=== PATIENT | male | born 1965 | race Caucasian/White ===

== ENCOUNTER 2017-04-12 03:29 | Inpatient (IN) | payer MEDICAID ==
[~2017-04-12] VITALS: Ht 177.8 cm; Wt 121.6 kg
[~2017-04-12 03:29] MED LIST: CYMBALTA60 MG PO; GLUCOPHAGE1000 MG PO; HUMULIN R100 U/ML SC; LEVEMIR100 U/M1 SC; LISINOPRIL10 MG PO; LYRICA75 MG PO; NOVOLOG100 U/M1 SC; OMEPRAZOLE20 M1 PO; SYMBICORT 16010.2 GM INH; ULTRAM50 MG PO; VICTOZA0.6 MG/0.1 SQ
[2017-04-12 04:06] LABS: BASOPHILS 0.1 % (0-2); EOSINOPHILS 0.1 % (0-7); HEMATOCRIT 59.7 % (42.0-54.0); HEMOGLOBIN 19.9 g/dL (13.5-17.5); IMMATURE GRANULOCYTES 0.2 % (0-5); MCH 29.8 pg (26.0-34.0); MCHC 33.3 g/dL (31.0-37.0); MCV 89.5 fL (80.0-100.0); MONOCYTES 4.3 % (2-11); NEUTROPHILS 84.3 % (40-80); PLATELET COUNT 184 10x3/uL (130-400); RDW 14.2 % (11.5-14.5); WBC 9.8 10x3/uL (4.8-10.8)
[2017-04-12 04:07] LABS: RBC 6.67 10x6/uL (4.20-6.10)
[2017-04-12 04:12] LABS: APPEARANCE CLEAR (CLEAR); BILIRUBIN NEGATIVE (NEGATIVE); COLOR DK YELLOW (YELLOW); GLUCOSE 100 mg/dL (NEGATIVE); KETONE NEGATIVE (NEGATIVE); LEUKOCYTE ESTERASE 1+ (NEGATIVE); NITRITE NEGATIVE (NEGATIVE); PROTEIN 3+ mg/dL (NEGATIVE); SPECIFIC GRAVITY 1.015 (1.005-1.020); UROBILINOGEN NORMAL (NORMAL)
[2017-04-12 04:13] LABS: BACTERIA FEW /hpf (NONE SEEN); EPITHELIAL CELLS 0-5 /hpf (0-5); HYALINE CAST 0-5 /lpf (NONE SEEN); MUCUS <1+ /lpf (NONE SEEN); RED CELLS - URINE 0-5 /hpf (0-5); WHITE CELLS - URINE 0-5 /hpf (0-5)
[2017-04-12 04:29] LABS: ALBUMIN 3.5 g/dL (3.4-5.0); ANION GAP 11.5 mmol/L (8-16); BILIRUBIN - TOTAL 0.83 mg/dL (0.2-1.3); CALCIUM 8.9 mg/dL (8.5-10.1); CARBON DIOXIDE 35.3 mmol/L (21.0-32.0); CREATININE - SERUM 1.1 mg/dL (0.6-1.3); POTASSIUM - SERUM 3.8 mmol/L (3.5-5.1); PROTEIN - SERUM 7.9 g/dL (6.4-8.2)
--- NOTE | 2017-04-12 07:30 | NUR ---
PT REC'D TO ROOM FROM ER VIA WC. ESCORTED BY ADMISSION STAFF. AAOX4. NO COMPLAINTS OF PAIN. REGULAR HEART RATE AND RHYTHM. LUNG SOUND CLEAR AND EQUAL BILAT. ABD ROUND, BOWEL SOUNDS HYPERACTIVE X4 QUADS, SLIGHT PAIN ON PALPATION TO RLQ AND RUQ. PT STATES IT "COMES AND GOES." PIV TO R HAND FREE OF REDNESS AND SWELLING. PATENT WITH DRESSING CDI. +3 PITTING EDEMA TO BLE. WILL APPLY SCD'S. HEALTH HX OBTAINED. BED LOW, CALL LIGHT IN REACH, DENIES NEEDS. CPOC.
[2017-04-12 08:02] VITALS: Ht 177.8 cm; Wt 121.6 kg
[2017-04-12 08:38] VITALS: BP 151/73
--- NOTE | 2017-04-12 09:30 | NUR ---
MORNING MEDS PASSED AT THIS TIME. NICOTINE PATCH APPLIED TO L SHOULDER. BED LOW, CALL LIGHT IN REACH, DENIES NEEDS. CPOC.
--- NOTE | 2017-04-12 12:05 | NUR ---
CURRENT FSBS 196. 4 UNITS OF INSULIN ADMINISTERED PER SS. BED LOW, CALL LIGHT IN REACH, DENIES NEEDS. CPOC.
[2017-04-12 13:30] VITALS: BP 137/84
--- NOTE | 2017-04-12 13:30 | NUR ---
PRN DEMEROL ADMINISTERED PER PT COMPLAINTS OF 8/10 ABD PAIN. WILL REASSESS. FAMILY AT BEDSIDE. BED LOW, CALL LIGHT IN REACH, DENIES NEEDS. CPOC.
--- NOTE | 2017-04-12 15:02 | NUR ---
PT RESTING IN BED WITH FAMILY AT BEDSIDE. BED LOW, CALL LIGHT IN REACH, DENIES NEEDS. CPOC.
[2017-04-12 17:05] VITALS: BP 178/115
--- NOTE | 2017-04-12 19:20 | NUR ---
RECIEVED SHIFT REPORT. PT IS LYING IN BED. ALERT AND ORIENTED AND ABLE TO VERBALIZE NEEDS. IV IS PATENT AND FLUIDS ARE RUNNING PER ORDER. O2 @ 4 PER NASAL CANNULA. SCD'S ON. PT STATES PAIN IS 5/10. PT IS AMBULATORY BUT WAS INSTRUCTED TO CALL FOR ANY ASSISTANCE NEEDED. NO NEEDS ARE VERBALIZED AT THIS TIME. IS AT THE BEDSIDE. WILL CONTINUE TO MONITOR. SIDE RAILS ARE UP X 2. BED IS IN LOWEST POSITION. CALL LIGHT IS WITHIN REACH.
[2017-04-12 20:00] VITALS: BP 158/101
--- NOTE | 2017-04-12 20:41 | NUR ---
SHIFT ASSESSMENT COMPLETED. NIGHT MEDS GIVEN WITH NO PROBLEMS. PT RECIEVED 8 UNITS INSULIN PER SLIDING SCALE FOR ZZCI=935. NO NEEDS ARE VOICED. WILL MONITOR. AT BEDSIDE. SIDE RAILS X 2. BED LOW. CALL LIGHT IN REACH.
[2017-04-13] VITALS: BP 161/103
[2017-04-13 04:00] VITALS: BP 172/117
[2017-04-13 05:59] LABS: BASOPHILS 0.1 % (0-2); EOSINOPHILS 0.7 % (0-7); HEMATOCRIT 53.1 % (42.0-54.0); HEMOGLOBIN 17.4 g/dL (13.5-17.5); IMMATURE GRANULOCYTES 0.1 % (0-5); LYMPHOCYTES 21.3 % (15-50); MCH 29.8 pg (26.0-34.0); MCHC 32.8 g/dL (31.0-37.0); MCV 91.1 fL (80.0-100.0); MEAN PLATELET VOLUME 10.4 fL (7.4-10.4); NEUTROPHILS 69.8 % (40-80); PLATELET COUNT 160 10x3/uL (130-400); RBC 5.83 10x6/uL (4.20-6.10); RDW 14.7 % (11.5-14.5); WBC 6.8 10x3/uL (4.8-10.8)
[2017-04-13 06:38] LABS: ALBUMIN 2.7 g/dL (3.4-5.0); ALKALINE PHOSPHATASE 83 U/L (46-116); ALT (SGPT) 35 U/L (10-68); CALCIUM 8.6 mg/dL (8.5-10.1); CARBON DIOXIDE 36.8 mmol/L (21.0-32.0); CHLORIDE - SERUM 100 mmol/L (98-107); CREATININE - SERUM 0.9 mg/dL (0.6-1.3); PROTEIN - SERUM 6.5 g/dL (6.4-8.2); SODIUM 140 mmol/L (136-145); eGFR NON AFRICAN AMERICAN > 90 mL/min (90-120)
[2017-04-13 06:39] LABS: CALC OSMOLALITY 277 mosm/kg (275-300); GLUCOSE 120 mg/dL (74-106); POTASSIUM - SERUM 3.2 mmol/L (3.5-5.1); UREA NITROGEN 8 mg/dL (7-18)
[2017-04-13 09:23] VITALS: BP 175/116
--- NOTE | 2017-04-13 12:30 | NUR ---
PATIENT UP AMBULATING IN ROOM WITHOUT ASSIST. NO SIGNS OF DISTRESS NOTED.
[2017-04-13 12:59] VITALS: BP 166/115
[2017-04-13 16:58] VITALS: BP 108/78
--- NOTE | 2017-04-13 19:55 | NUR ---
RECIEVED SHIFT REPORT. PT IS LYING IN BED. ALERT AND ORIENTED AND ABLE TO VERBALIZE NEEDS. IV IS PATENT AND FLUIDS ARE RUNNING PER ORDER. O2 @ 4 PER NASAL CANNULA. SCD'S OFF AT THIS TIME. PT IS AMBULATORY BUT WAS INSTRUCTED TO CALL FOR ANY ASSISTANCE NEEDED. PT STATES PAIN IS 4/10. NO NEEDS ARE VERBALIZED AT THIS TIME. IS AT BEDSIDE. WILL CONTINUE TO MONITOR. SIDE RAILS ARE UP X 2. BED IS IN LOWEST POSITION. CALL LIGHT IS WITHIN REACH.
[2017-04-13 20:00] VITALS: BP 159/96
--- NOTE | 2017-04-13 21:18 | NUR ---
SHIFT ASSESSMENT COMPLETED. PT REFUSED SCHEDULED MIRALAX AND COLACE DUE TO FREQUENT SOFT STOOLS. PT RECIEVED 8 UNITS INSULIN PER SLIDING SCALE FOR QQCV=778. NO NEEDS VOICED AT THIS TIME. AT BEDSIDE. WILL MONITOR. SIDE RAILS X 2. BED LOW. CALL LIGHT IN REACH.
[2017-04-14] VITALS: BP 144/92
[2017-04-14 05:34] LABS: BASOPHILS 0.2 % (0-2); EOSINOPHILS 0.8 % (0-7); HEMATOCRIT 54.6 % (42.0-54.0); HEMOGLOBIN 17.6 g/dL (13.5-17.5); IMMATURE GRANULOCYTES 0.2 % (0-5); LYMPHOCYTES 17.3 % (15-50); MCH 29.6 pg (26.0-34.0); MCHC 32.2 g/dL (31.0-37.0); MCV 91.9 fL (80.0-100.0); MONOCYTES 9.1 % (2-11); NEUTROPHILS 72.4 % (40-80); PLATELET COUNT 172 10x3/uL (130-400); RBC 5.94 10x6/uL (4.20-6.10); RDW 14.9 % (11.5-14.5); WBC 6.6 10x3/uL (4.8-10.8)
[2017-04-14 06:27] LABS: ALBUMIN 2.8 g/dL (3.4-5.0); ALKALINE PHOSPHATASE 98 U/L (46-116); ALT (SGPT) 34 U/L (10-68); BILIRUBIN - TOTAL 0.67 mg/dL (0.2-1.3); CALCIUM 8.7 mg/dL (8.5-10.1); CHLORIDE - SERUM 101 mmol/L (98-107); CREATININE - SERUM 0.9 mg/dL (0.6-1.3); PROTEIN - SERUM 6.8 g/dL (6.4-8.2); SODIUM 139 mmol/L (136-145); eGFR NON AFRICAN AMERICAN > 90 mL/min (90-120)
[2017-04-14 06:47] LABS: CALC OSMOLALITY 281 mosm/kg (275-300); GLUCOSE 181 mg/dL (74-106); POTASSIUM - SERUM 4.1 mmol/L (3.5-5.1); UREA NITROGEN 11 mg/dL (7-18)
[2017-04-14 09:52] VITALS: BP 153/87
[2017-04-14] MEDS ORDERED: FLORAJEN3 CAPS460 MG PO (10:32)
[2017-04-14] MEDS ORDERED: COLACE100 MG PO (10:32)
[2017-04-14] MEDS ORDERED: Levaquin PO (10:33)
[2017-04-14] MEDS ORDERED: MIRALAX17 GM PO (10:33)
[2017-04-14] MEDS ORDERED: FLAGYL500 MG PO (10:34)
--- NOTE | 2017-04-14 11:16 | NUR ---
CM met with patient and to assess discharge planning needs. Patient lives with his , Garima, who will take him home. Patient has O2 at night where [facility] gets from [facility]. Patient denies any HH needs or use at this time. He has 4 steps to enter his home. CM will continue to follow and assist as needed. PCP: [facility] Garima Arreola () [phone]
--- NOTE | 2017-04-14 16:31 | NUR ---
PT DISCHARGED HOME AND DOES NOT HAVE ANY NEEDS FROM A CM STANDPOINT
== END 2017-04-14 12:26 | disposition home or self-care (01) | DRG 392 ==
LOC: D.ER 03:29 → D.MS 06:27
PROVIDERS: Emergency Medicine; Family Medicine; ADMIT Family Medicine
DX: K57.92 Diverticulitis of intestine, part unspecified, without perforation or abscess without bleeding (principal); F17.203 Nicotine dependence unspecified, with withdrawal; K59.00 Constipation, unspecified; J44.9 Chronic obstructive pulmonary disease, unspecified; E11.65 Type 2 diabetes mellitus with hyperglycemia; E11.40 Type 2 diabetes mellitus with diabetic neuropathy, unspecified; Z79.4 Long term (current) use of insulin; K21.9 Gastro-esophageal reflux disease without esophagitis; K76.0 Fatty (change of) liver, not elsewhere classified; Z99.81 Dependence on supplemental oxygen; I10 Essential (primary) hypertension; Z72.89 Other problems related to lifestyle

== ENCOUNTER 2017-07-12 09:03 | Emergency (ER) | payer MEDICARE ==
[~2017-07-12 09:03] MED LIST changes: +COLACE100 MG PO; +FLAGYL500 MG PO; +FLORAJEN3 CAPS460 MG PO; +Levaquin PO; +MIRALAX17 GM PO
[2017-07-12 09:32] LABS: BASOPHILS 0.1 % (0-2); EOSINOPHILS 0.2 % (0-7); HEMATOCRIT 55.6 % (42.0-54.0); HEMOGLOBIN 18.3 g/dL (13.5-17.5); IMMATURE GRANULOCYTES 0.3 % (0-5); LYMPHOCYTES 12.5 % (15-50); MCH 30.3 pg (26.0-34.0); MCHC 32.9 g/dL (31.0-37.0); MCV 92.2 fL (80.0-100.0); MEAN PLATELET VOLUME 10.3 fL (7.4-10.4); MONOCYTES 4.6 % (2-11); NEUTROPHILS 82.3 % (40-80); PLATELET COUNT 179 10x3/uL (130-400); RBC 6.03 10x6/uL (4.20-6.10); RDW 14.1 % (11.5-14.5); WBC 10.8 10x3/uL (4.8-10.8)
[2017-07-12 09:51] LABS: ALBUMIN 3.4 g/dL (3.4-5.0); ALKALINE PHOSPHATASE 105 U/L (46-116); ALT (SGPT) 20 U/L (10-68); AMYLASE - SERUM 21 U/L (25-115); BILIRUBIN - TOTAL 0.94 mg/dL (0.2-1.3); CALC OSMOLALITY 272 mosm/kg (275-300); CARBON DIOXIDE 30.9 mmol/L (21.0-32.0); CHLORIDE - SERUM 93 mmol/L (98-107); GLUCOSE 211 mg/dL (74-106); LIPASE 106 U/L (73-393); POTASSIUM - SERUM 4.5 mmol/L (3.5-5.1); PROTEIN - SERUM 7.5 g/dL (6.4-8.2); SODIUM 133 mmol/L (136-145); UREA NITROGEN 15 mg/dL (7-18); eGFR NON AFRICAN AMERICAN 83 mL/min (90-120)
[2017-07-13] MEDS ORDERED: PRAVASTATIN SOD10 MG PO (15:57)
[2017-07-13] MEDS ORDERED: PROZAC20 MG PO (15:58)
== END 2017-07-12 11:47 | disposition home or self-care (01) ==
LOC: D.ER 09:03
PROVIDERS: Family Medicine
DX: R10.9 Unspecified abdominal pain (principal); R11.10 Vomiting, unspecified

== ENCOUNTER 2017-07-13 10:20 | Observation (INO) | payer MEDICARE ==
[~2017-07-13] VITALS: Ht 177.8 cm; Wt 125.4 kg
[2017-07-13 11:12] LABS: BASOPHILS 0.1 % (0-2); EOSINOPHILS 0.2 % (0-7); HEMATOCRIT 55.8 % (42.0-54.0); HEMOGLOBIN 18.1 g/dL (13.5-17.5); IMMATURE GRANULOCYTES 0.3 % (0-5); LYMPHOCYTES 10.9 % (15-50); MCH 30.1 pg (26.0-34.0); MCHC 32.4 g/dL (31.0-37.0); MCV 92.8 fL (80.0-100.0); MEAN PLATELET VOLUME 10.8 fL (7.4-10.4); MONOCYTES 4.7 % (2-11); NEUTROPHILS 83.8 % (40-80); PLATELET COUNT 165 10x3/uL (130-400); RBC 6.01 10x6/uL (4.20-6.10); RDW 14.1 % (11.5-14.5)
[2017-07-13 11:34] LABS: ALBUMIN 3.5 g/dL (3.4-5.0); ALKALINE PHOSPHATASE 99 U/L (46-116); BILIRUBIN - TOTAL 0.84 mg/dL (0.2-1.3); CALCIUM 9.1 mg/dL (8.5-10.1); CARBON DIOXIDE 32.2 mmol/L (21.0-32.0); CHLORIDE - SERUM 94 mmol/L (98-107); GLUCOSE 172 mg/dL (74-106); LIPASE 88 U/L (73-393); POTASSIUM - SERUM 4.2 mmol/L (3.5-5.1); SODIUM 133 mmol/L (136-145); eGFR NON AFRICAN AMERICAN 83 mL/min (90-120)
[2017-07-13 11:35] LABS: ALT (SGPT) 6 U/L (10-68); AMYLASE - SERUM 35 U/L (25-115); CALC OSMOLALITY 271 mosm/kg (275-300); UREA NITROGEN 19 mg/dL (7-18)
[2017-07-13 11:42] LABS: APPEARANCE CLEAR (CLEAR); BILIRUBIN NEGATIVE (NEGATIVE); COLOR YELLOW (YELLOW); GLUCOSE 50 mg/dL (NEGATIVE); KETONE SMALL mg/dL (NEGATIVE); NITRITE NEGATIVE (NEGATIVE); PROTEIN 3+ mg/dL (NEGATIVE); SPECIFIC GRAVITY 1.015 (1.005-1.020); UROBILINOGEN NORMAL (NORMAL)
[2017-07-13 11:43] LABS: BACTERIA FEW /hpf (NONE SEEN); EPITHELIAL CELLS RARE /hpf (0-5); MUCUS <1+ /lpf (NONE SEEN)
--- NOTE | 2017-07-13 15:23 | NUR ---
RECEIVED REPORT FROM ED. PATIENT TO UNIT SOON.
--- NOTE | 2017-07-13 15:45 | NUR ---
PATIENT ARRIVED TO ROOM 2130 AT THIS TIME. AMBULATORY. PATIENT RESTING IN BED. RESP EVEN AND UNLABORED. O2 VIA NC. CHRONIC O2 USER, HAS HOME UNIT. CALL LIGHT WITHIN REACH. 20 GAUGE IV TO RIGHT AC SALINE LOCKED.
[2017-07-13] MEDS ORDERED: PRAVASTATIN SOD10 MG PO (15:57)
[2017-07-13] MEDS ORDERED: PROZAC20 MG PO (15:58)
--- NOTE | 2017-07-13 16:37 | NUR ---
FSBS 103. NO INSULIN COVERAGE PER SLIDING SCALE. NO DISTRESS. RESTING IN BED WITH EYES OPEN. CALL LIGHT WITHIN REACH.
[2017-07-13 17:10] VITALS: BP 158/96
[2017-07-13 17:51] VITALS: BP 158/96; BMI 38.8
--- NOTE | 2017-07-13 18:01 | NUR ---
MEDICATED FOR PAIN AT THIS TIME. NO DISTRESS.
--- NOTE | 2017-07-13 19:05 | NUR ---
REPORT GIVEN TO ONCOMING NURSE. NO DISTRESS.
--- NOTE | 2017-07-13 19:40 | NUR ---
PT IN BED RESTING QUIETLY. DENIES ANY PAIN OR NEEDS AT THIS TIME. WILL CTM.
[2017-07-13 20:33] VITALS: BP 169/77
--- NOTE | 2017-07-13 23:57 | NUR ---
PT C/O PAIN IN STOMACH. GIVEN PRN NORCO. BREATHING EVEN AND UNLABORED. DENIES ANY OTHER NEEDS AT THIS TIME. PT UNDERSTANDS THAT AFTER MIDNIGHT HE WILL BE NPO FOR UPCOMING ULTRASOUND. WILL CTM.
[2017-07-14 04:39] VITALS: BP 170/103
[2017-07-14 05:55] LABS: BASOPHILS 0.1 % (0-2); EOSINOPHILS 1.3 % (0-7); HEMATOCRIT 49.1 % (42.0-54.0); HEMOGLOBIN 15.5 g/dL (13.5-17.5); IMMATURE GRANULOCYTES 0.1 % (0-5); LYMPHOCYTES 24.3 % (15-50); MCH 29.5 pg (26.0-34.0); MCHC 31.6 g/dL (31.0-37.0); MCV 93.3 fL (80.0-100.0); MEAN PLATELET VOLUME 10.4 fL (7.4-10.4); MONOCYTES 7.4 % (2-11); NEUTROPHILS 66.8 % (40-80); PLATELET COUNT 145 10x3/uL (130-400); RBC 5.26 10x6/uL (4.20-6.10); RDW 14.3 % (11.5-14.5); WBC 7.2 10x3/uL (4.8-10.8)
--- NOTE | 2017-07-14 06:08 | NUR ---
FSBS WAS 253. DID NOT GIVE INSULIN DUE TO PT BEING NPO SINCE MIDNIGHT.
[2017-07-14 08:08] LABS: ALKALINE PHOSPHATASE 86 U/L (46-116); CALCIUM 8.2 mg/dL (8.5-10.1); CARBON DIOXIDE 30.3 mmol/L (21.0-32.0); CHLORIDE - SERUM 102 mmol/L (98-107); CREATININE - SERUM 0.9 mg/dL (0.6-1.3); LIPASE 90 U/L (73-393); POTASSIUM - SERUM 4.2 mmol/L (3.5-5.1); SODIUM 140 mmol/L (136-145); UREA NITROGEN 16 mg/dL (7-18); eGFR NON AFRICAN AMERICAN > 90 mL/min (90-120)
[2017-07-14 08:14] LABS: ALBUMIN 2.6 g/dL (3.4-5.0); ALT (SGPT) 20 U/L (10-68); AMYLASE - SERUM 14 U/L (25-115); CALC OSMOLALITY 288 mosm/kg (275-300); GLUCOSE 259 mg/dL (74-106); PROTEIN - SERUM 5.5 g/dL (6.4-8.2)
[2017-07-14 08:24] VITALS: BP 152/113
[2017-07-14 11:55] VITALS: BP 141/81
[2017-07-14 13:25] VITALS: Ht 177.8 cm; Wt 125.4 kg
[2017-07-14 15:27] VITALS: BP 130/72
[2017-07-14 20:00] VITALS: BP 146/93
--- NOTE | 2017-07-14 20:10 | NUR ---
RESUMED CARE OF PT, LYING IN BED RESPIRAITONS EVEN AND UNLABORED ON ROOM AIR. FAMILY AT BEDSIDE. RIGHT AC INFUSING NS @ 100. PLAN OF CARE DISCUSSED. CALL LIGHT IN REACH. WILL CONTINUE TO MONITOR. SEE NURSE ASSESSMENT.
[2017-07-15] VITALS: BP 175/112
[2017-07-15 04:00] VITALS: BP 163/95
--- NOTE | 2017-07-15 05:32 | NUR ---
FOOD SERVICE ORDER CLERK AT BEDSIDE TO OBTAIN VITALS, WILL CONTINUE WITH PLAN OF CARE. CALL LIGHT IN REACH.
[2017-07-15 05:34] LABS: BASOPHILS 0.2 % (0-2); EOSINOPHILS 1.4 % (0-7); HEMATOCRIT 49.4 % (42.0-54.0); HEMOGLOBIN 15.7 g/dL (13.5-17.5); IMMATURE GRANULOCYTES 0.2 % (0-5); LYMPHOCYTES 18.8 % (15-50); MCH 30.1 pg (26.0-34.0); MCHC 31.8 g/dL (31.0-37.0); MCV 94.6 fL (80.0-100.0); MEAN PLATELET VOLUME 10.7 fL (7.4-10.4); NEUTROPHILS 73.4 % (40-80); PLATELET COUNT 153 10x3/uL (130-400); RBC 5.22 10x6/uL (4.20-6.10); RDW 14.4 % (11.5-14.5)
[2017-07-15 05:36] LABS: WBC 9.4 10x3/uL (4.8-10.8)
[2017-07-15 06:01] LABS: ALBUMIN 2.9 g/dL (3.4-5.0); ALKALINE PHOSPHATASE 111 U/L (46-116); ALT (SGPT) 19 U/L (10-68); BILIRUBIN - TOTAL 0.69 mg/dL (0.2-1.3); CALC OSMOLALITY 281 mosm/kg (275-300); CALCIUM 8.4 mg/dL (8.5-10.1); CARBON DIOXIDE 34.1 mmol/L (21.0-32.0); CHLORIDE - SERUM 99 mmol/L (98-107); CREATININE - SERUM 0.9 mg/dL (0.6-1.3); POTASSIUM - SERUM 3.7 mmol/L (3.5-5.1); PROTEIN - SERUM 6.7 g/dL (6.4-8.2); SODIUM 138 mmol/L (136-145); UREA NITROGEN 13 mg/dL (7-18); eGFR NON AFRICAN AMERICAN > 90 mL/min (90-120)
[2017-07-15 06:02] LABS: GLUCOSE 201 mg/dL (74-106)
[2017-07-15 08:54] VITALS: BP 163/116
--- NOTE | 2017-07-15 09:30 | NUR ---
ALERT AND ORIENTED X4. AT BEDSIDE. BP-208/119. RECHECK BP MANUALLY-189/85. NOTIFY LATOYA. ORDER FOR APRESOLINE 10mg IV FOR SYSTOLIC OVER 170 OBTAINED AND GIVEN PER ORDER. CONTINUE TO MONITOR. BENADRYL GIVEN FOR ITCHING. COMPLAINS OF NAUSEA. ZOFRAN GIVEN PER ORDER. DENIES ANY OTHER NEEDS. BED LOCKED AND LOW. CALL LIGHT IN REACH. TWO SIDERAILS UP.
[2017-07-15 12:55] VITALS: BP 152/98
[2017-07-15 16:01] VITALS: BP 137/82
[2017-07-15 21:58] VITALS: BP 161/97
--- NOTE | 2017-07-16 02:07 | NUR ---
CALL LIGHT IN REACH, WILL CONTINUE WITH PLAN OF CARE.
[2017-07-16 02:20] VITALS: BP 157/110
[2017-07-16 05:18] VITALS: BP 166/116
[2017-07-16 07:00] LABS: BASOPHILS 0.2 % (0-2); HEMATOCRIT 51.4 % (42.0-54.0); HEMOGLOBIN 16.3 g/dL (13.5-17.5); IMMATURE GRANULOCYTES 0.3 % (0-5); LYMPHOCYTES 15.7 % (15-50); MCH 29.6 pg (26.0-34.0); MCHC 31.7 g/dL (31.0-37.0); MCV 93.3 fL (80.0-100.0); MEAN PLATELET VOLUME 11.1 fL (7.4-10.4); MONOCYTES 5.9 % (2-11); NEUTROPHILS 76.9 % (40-80); RBC 5.51 10x6/uL (4.20-6.10); RDW 14.4 % (11.5-14.5)
[2017-07-16 07:01] LABS: PLATELET COUNT 100 10x3/uL (130-400)
[2017-07-16 07:19] LABS: ALBUMIN 2.9 g/dL (3.4-5.0); ALKALINE PHOSPHATASE 94 U/L (46-116); ALT (SGPT) 16 U/L (10-68); CALC OSMOLALITY 278 mosm/kg (275-300); CALCIUM 8.5 mg/dL (8.5-10.1); CARBON DIOXIDE 34.7 mmol/L (21.0-32.0); CHLORIDE - SERUM 97 mmol/L (98-107); CREATININE - SERUM 0.8 mg/dL (0.6-1.3); GLUCOSE 223 mg/dL (74-106); POTASSIUM - SERUM 3.9 mmol/L (3.5-5.1); PROTEIN - SERUM 6.7 g/dL (6.4-8.2); SODIUM 136 mmol/L (136-145); UREA NITROGEN 12 mg/dL (7-18); eGFR NON AFRICAN AMERICAN > 90 mL/min (90-120)
[2017-07-16 08:38] VITALS: BP 174/118
--- NOTE | 2017-07-16 08:44 | NUR ---
RESP UL ON . IV PATENT. AT BS. CONT. TO C/O PAIN. WILL CONT. TO MONITOR.
[2017-07-16 12:00] VITALS: BP 159/108
--- NOTE | 2017-07-16 14:24 | NUR ---
Nutrition Follow Up: Per chart pt continues with abdominal pain. Pt is eating 38% meal avg on a diabetic diet. +BM 07/16/17. Wt gain noted. Labs reviewed - Glucose elevated. Meds noted. Rec continue current diet as tolerated. RD following.
[2017-07-16 16:40] VITALS: BP 159/116
--- NOTE | 2017-07-16 19:15 | NUR ---
PT IS RESTING IN BED WITH EYES OPEN. ALERT AND ORIENTED X 3. VOICED COMLAINT OF ABD PAIN LEVEL OF 5 AT THIS TIME. AWAITING SURGERY TO COME GET HIM. IV INFUSING TO RIGHT AC WITHOUT DIFFICULTY. NO REDNESS OR EDEMA NOTED AT THE INSERTION SITE. IS AT BEDSIDE. SR'S ARE UP X 2 IN BED. CALL LIGHT AND BEDSIDE TABLE ARE WITHIN EASY REACH.
[2017-07-16 22:40] VITALS: BP 185/120
--- NOTE | 2017-07-16 22:50 | NUR ---
PT TOLD OSVALDO MCNALLY RN HIS PAIN MEDS WERE NOT WORKING. HE WANTS NORCO 10 [address] ACEVEDO PAGED PER OSVALDO.
--- NOTE | 2017-07-16 23:06 | NUR ---
PT RESTING IN HIS ROOM EATING A BOWL OF CEREAL AFTER FINDING OUT HIS SURGERY WAS NOT UNTIL AM. NO OTHER NEEDS VOICED.
--- NOTE | 2017-07-16 23:55 | NUR ---
PT IN BED RESTING QUIETLY. DENIES ANY NEEDS AT THIS TIME. BREATHING EVEN AND UNLABORED. WILL CPOC.
--- NOTE | 2017-07-17 03:04 | NUR ---
RESTING IN BED WITH EYES CLOSED.
--- NOTE | 2017-07-17 06:14 | NUR ---
PT RESTING IN BED WITH EYES OPEN. NO ACUTE DISTRESS NOTED. VOICED COMPLAINT OF ABD PAIN LEVEL OF 7. MEDICATED PER OCT.
[2017-07-17 06:37] VITALS: BP 168/104
[2017-07-17 06:49] LABS: BASOPHILS 0.3 % (0-2); EOSINOPHILS 1.6 % (0-7); HEMATOCRIT 50.2 % (42.0-54.0); IMMATURE GRANULOCYTES 0.3 % (0-5); LYMPHOCYTES 15.2 % (15-50); MCH 30.2 pg (26.0-34.0); MCHC 31.9 g/dL (31.0-37.0); MCV 94.7 fL (80.0-100.0); MEAN PLATELET VOLUME 11.2 fL (7.4-10.4); MONOCYTES 7.6 % (2-11); RDW 14.5 % (11.5-14.5); WBC 7.9 10x3/uL (4.8-10.8)
[2017-07-17 06:54] LABS: PLATELET COUNT 159 10x3/uL (130-400)
[2017-07-17 07:16] LABS: ALBUMIN 2.7 g/dL (3.4-5.0); ALKALINE PHOSPHATASE 104 U/L (46-116); ALT (SGPT) 18 U/L (10-68); BILIRUBIN - TOTAL 0.79 mg/dL (0.2-1.3); CALC OSMOLALITY 287 mosm/kg (275-300); CALCIUM 8.6 mg/dL (8.5-10.1); CARBON DIOXIDE 31.7 mmol/L (21.0-32.0); CHLORIDE - SERUM 97 mmol/L (98-107); CREATININE - SERUM 0.9 mg/dL (0.6-1.3); POTASSIUM - SERUM 3.8 mmol/L (3.5-5.1); PROTEIN - SERUM 6.8 g/dL (6.4-8.2); SODIUM 137 mmol/L (136-145); UREA NITROGEN 14 mg/dL (7-18); eGFR NON AFRICAN AMERICAN > 90 mL/min (90-120)
[2017-07-17 07:17] LABS: GLUCOSE 332 mg/dL (74-106)
--- NOTE | 2017-07-17 07:31 | NUR ---
AM ROUNDING- RECEIVED REPORT FROM [place] ATTENDANT NURSE RALPH. PT IS CURRENTLY SITTING UP IN BED WITH EYES OPEN RESTING TALKING TO . PT IS CURRENTLY UPSET WITH FOR GOING OUTSIDE TO SMOKE. PT IS REQUESTING BENADRYL FOR PAIN MEDICATION (DILAUDID) MAKING HIM "ITCH". PER RALPH, DR. ACEVEDO PAGED THREE TIMES LAST NIGHT TO SEE ABOUT GETTING NORCO PT REQUESTED WITH NO CALLBACK. PT IS NPO AT THIS TIME FOR SURGERY TODAY (GALLBLADDER REMOVAL). CONSENTS ARE SIGNED AND IN CHART. ON ROOM AIR. NO MONITOR. IV SEEN TO RIGHT AC WITH NS RUNNING AT 100CC. WILL TX PT WITH BENADRYL ORDERED. WILL CONTINUE TO MONITOR AND CONTINUE WITH PLAN OF CARE.
[2017-07-17 08:00] VITALS: BP 150/95
--- NOTE | 2017-07-17 08:14 | NUR ---
RHODA WITH OR CALLED TO STATED TO THIS NURSE TO PRE-OP PT. THIS NURSE INFORMED RHODA IN OR THAT PT HAS NO PRE-OP MEDICATIONS IN EMAR TO GIVE. RHODA STATES THATS OK THEY WILL GIVE MEDICATIONS LONG PT HAS WORKING IV AND IS IN GOWN. PT HAS WORKING IV AND IS IN GOWN. WILL AWAIT OR TO COME GET PT.
[2017-07-17] MEDS ORDERED: HYDROCODON-ACE1 EAC7 PO (10:19)
--- NOTE | 2017-07-17 10:58 | NUR ---
RECEIVED REPORT FROM ANDRES IN OR. ANDRES STATES THEY WILL BE BRINGING PT BACK SOON. ANDRES ASKED TO SEE ABOUT GETTING PTS PAIN MEDICATION SWITCHED FROM DILAUDID (PT HAS ITCHING REACTION) TO NORCO. ANDRES STATES HE WILL ASK DR. ACEVEDO WHEN HE SEES HIM. ANDRES STATES PT CAN RESUME EATING/DRINKING. WILL AWAIT PT RETURN.
[2017-07-17 11:11] VITALS: BP 166/110
--- NOTE | 2017-07-17 11:57 | NUR ---
PT BACK FROM OR. STERI-STRIPS SEEN TO ABDOMINAL AREA (ONE ON MID-TOP OF ABDOMEN, ONE TO RIGHT OF UPPER ABDOMEN, AND ONE LOWER ABDOMEN). PT IS ON 02 AT 4L VIA NC. ALERT AND ORIENTED. VITAL SIGNS BEING TAKEN. WILL CONTINUE TO MONITOR.
[2017-07-17 12:00] VITALS: BP 166/110
[2017-07-17 16:00] VITALS: BP 172/110
--- NOTE | 2017-07-17 16:14 | NUR ---
RECEIVED ORDERS FROM LATOYA KENT NP TO GIVE PT ONE TIME DOSE NOW OF NORCO 5MG.
--- NOTE | 2017-07-17 18:00 | NUR ---
PT IS CURRENTLY SITTING UP IN BED WITH EYES OPEN RESTING. IS AT BEDSIDE. PT IS AWAITING D/C. NO NEED AT THIS TIME. WILL CONTINUE TO MONITOR.
--- NOTE | 2017-07-17 20:02 | NUR ---
DISCHARGE PAPERWORK COMPLETED. RIGHT AC IV REMOVED WITH TIP INTACT. WHEELED OUTSIDE TO CAR.
== END 2017-07-17 20:03 | disposition home or self-care (01) ==
LOC: D.ER 10:20 → D.M2 14:11 → OBSVTIME 14:11 → D.M2 07-17 20:03
PROVIDERS: Family Medicine; ADMIT Emergency Medicine
DX: K80.20 Calculus of gallbladder without cholecystitis without obstruction (principal); K29.70 Gastritis, unspecified, without bleeding; K76.0 Fatty (change of) liver, not elsewhere classified; G47.33 Obstructive sleep apnea (adult) (pediatric); E11.65 Type 2 diabetes mellitus with hyperglycemia; J44.9 Chronic obstructive pulmonary disease, unspecified

== ENCOUNTER → 2017-08-04 10:36 | Outpatient (CLI) | payer MEDICARE, MEDICAID ==
[2017-07-14 13:25] VITALS: BMI 38.7
[~2017-08-04 10:36] MED LIST changes: +CATAPRES0.1 MG PO; +HYDROCODON-ACE1 EAC7 PO; +PRAVASTATIN SOD10 MG PO; +PROZAC20 MG PO
== END | disposition home or self-care (01) ==
LOC: D.CT 10:36
DX: R06.02 Shortness of breath (principal)

== ENCOUNTER 2017-08-10 10:40 | Emergency (ER) | payer MEDICARE, MEDICAID ==
[2017-07-14 13:25] VITALS: BMI 38.7
[~2017-08-10 10:40] MED LIST changes: -CATAPRES0.1 MG PO
== END 2017-08-10 12:27 | disposition home or self-care (01) ==
LOC: D.ER 10:40
DX: R06.02 Shortness of breath (principal); J44.9 Chronic obstructive pulmonary disease, unspecified; I50.9 Heart failure, unspecified; F17.200 Nicotine dependence, unspecified, uncomplicated

== ENCOUNTER 2017-09-23 06:38 | Outpatient (CLI) | payer MEDICARE, MEDICAID ==
[~2017-09-23] VITALS: Ht 177.8 cm; Wt 119.1 kg
--- NOTE | ~2017-09-23 | HEMODYNAMI ---
PATIENT:CARON FLOOD MEDICAL RECORD: [id number] : 63 LOCATION:[facility] ADMISSION DATE: 09/23/17 Generatedon:09/23/20179:51 Patient name: CARON FLOOD Patient #: [id number] SSN: : [birth year] Date of study: 09/23/2017 Page: Of Hemodynamic Procedure Report Patient Data Patient Demographics Procedure consent was obtained First Name: CARON Gender: Male Last Name: ALEENA : 1965 Middle Initial: RAY Age: 52 year(s) Patient #: [id number] Race: Unknown Additional ID: [id number] Contact details [address] [address] [place] [address] rd State: [place] City: [place] Zip code: [address] Past Medical History Allergies Allergen Reaction Date Comments Reported Other allergy 09/23/2017 PCN Admission Admission Data Admission Date: 09/23/2017 Admission Time: 6:38 Lab Results Lab Result Date: 09/23/2017 Lab Result Time: 0:00 Biochemistry Name Units Result Min Max BUN mg/dl 23 --(----)-* 7 18 Creatinine mg/dl 0.6 --(*---)-- 0.6 1.3 CBC Name Units Result Min Max Hemoglobin g/dl 56.9 --(----)-* 13.5 17.5 Procedure Procedure Types Cath Procedure Diagnostic Procedure LHC [facility] w/Coronaries Miscellaneous Procedures Moderate Sedation up to 15 minutes Procedure Description Procedure Date Procedure Date: 09/23/2017 Procedure Start Time: 9:35 Procedure End Time: 9:50 Procedure Staff Name Function Harley Ferrera MD Performing Physician Kayla Fang RT Monitor Shweta Stanley RN Nurse Juan Irving RN Discovery Guide Bakari Braden RT Scrub Procedure Data Cath Procedure Fluoroscopy Diagnostic fluoroscopy Total fluoroscopy Time: 3 time: 3 min min Diagnostic fluoroscopy Total fluoroscopy dose: 960 dose: 960 mGy mGy Contrast Material Contrast Material Type Amount (ml) Isovue 300 67 Entry Location Entry Primary Successful Side Size Upsize Upsize Entry Closure Lerner ccessful Closure Location (Fr) 1 (Fr) 2 (Fr) Remarks Device Remarks Radial Right 6 Fr Mechanical artery Short Compression Estimated blood loss: 10 ml Diagnostic catheters Device Type Used For End Catheter Placement DIAGNOSTIC Alden 110cm Procedure 5Fr catheter ([id number]) DIAGNOSTIC Camden 110cm 5 Procedure Fr catheter ([id number]) Procedure Complications No complications Procedure Medications Medication Administration Route Dosage 0.9% NaCl I.V. 100 ml/hr Oxygen NC 2 l/min Lidocaine 2% added to field 20 Heparin Flush Bag added to field 2 bags (1000units/500ml NS) Radial Cocktail added to field 1 syringe (Verapomil 2mg/Nitro 400mcg/Heparin 1500units) Fentanyl I.V. 50 mcg Versed I.V. 1 mg Versed I.V. 1 mg Fentanyl I.V. 50 mcg Hemodynamics Rest HGB: 56.9 (g/dl) Heart Rate: 94 (bpm) Pressure Samples Time Site Value (mmHg) Purpose Heart Use Rate(bpm) 9:41 LV 116/-4,11 Snapshot 92 Gradients Valve Time Site Site Mean SEP/DFP Peak To Heart Use 1 2 (mmHg) (sec/min) Peak Rate (mmHg) (bpm) Aortic 9:42 LV AO 91 Snapshots Pre Cath Intra NCS Post Cath Vital Signs Time Heart Resp SPO2 etCO2 NIBP (mmHg) Rhythm Pain Sedation Rate (ipm) (%) (mmHg) Status Level (bpm) 9:21:02 93 16 95 12.8 148/93(121) NSR 0 (11) 10(A) , No pain 9:25:20 93 18 96 25 145/101(121) NSR 0 (11) 10(A) , No pain 9:29:36 93 18 96 35.6 134/84(105) NSR 0 (11) 10(A) , No pain 9:33:51 93 16 95 23.4 123/85(98) NSR 0 (11) 9(A) , No pain 9:38:02 92 16 96 31 128/81(107) NSR 0 (11) 9(A) , No pain 9:43:22 83 17 96 28 110/61(85) NSR 0 (11) 9(A) , No pain 9:47:32 90 14 96 27.3 120/73(92) NSR 0 (11) 10(A) , No pain Medications Time Medication Route Dose Verified Delivered Reason Notes Effectiveness by by 9:20:07 0.9% NaCl I.V. 100ml/hr Harley Shweta used for Iban Stanley RN procedure 9:20:16 Oxygen NC 2 l/min Harley Shweta Per Iban Stanley RN physician 9:20:29 Lidocaine 2% added 20ml Harley Harley for local to vial Iban Ferrera MD anesthetic field 9:20:34 Heparin Flush added 2 bags Harley Harley used for Bag to Iban Ferrera MD procedure (1000units/500ml field NS) 9:20:45 Radial Cocktail added 1 Harley Harley for (Verapomil to syringe Iban Ferrera MD vasodilation 2mg/Nitro field 400mcg/Heparin 1500units) 9:23:52 Fentanyl I.V. 50 mcg Harley Shweta for sedation Iban Stanley RN 9:24:00 Versed I.V. 1 mg Harley Shweta for sedation Iban Stanley RN 9:31:03 Versed I.V. 1 mg Harley Shweta for sedation Iban Stanley RN 9:31:09 Fentanyl I.V. 50 mcg Harley Shweta for sedation Iban Stanley RN Procedure Log Time Note 9:09:32 Juan Irving RN sent for patient. Start room use. 9:09:33 Time tracking: Regular hours 9:09:36 Plan of Care:Hemodynamics will remain stable., Cardiac rhythm will remain stable., Comfort level will be maintained., Respiratory function will remain adequate., Patient/ family verbilizes understanding of procedure., Procedure tolerated without complication., Recovers from procedure without complications.. 9:19:29 Patient received from Pre/Post Procedure Room to CCL 2 Alert and oriented. Tansferred to table in Supine position. 9:19:31 Warm blankets applied, and kristina hugger turned on for patient comfort. 9:19:33 Signed procedure consent form obtained from patient. 9:19:34 ECG and BP/O2 sat monitors applied to patient. 9:19:48 Vital chart was started 9:20:07 0.9% NaCl 100ml/hr I.V. was administered by Shweta Stanley RN; used for procedure; 9:20:16 Oxygen 2 l/min NC was administered by Shweta Stanley RN; Per physician; 9:20:27 Baseline sample Acquired. 9:20:29 Lidocaine 2% 20ml vial added to field was administered by Harley Ferrera MD; for local anesthetic; 9:20:32 Rhythm: sinus rhythm 9:20:34 Heparin Flush Bag (1000units/500ml NS) 2 bags added to field was administered by Harley Ferrera MD; used for procedure; 9:20:34 Full Disclosure recording started 9:20:45 Radial Cocktail (Verapomil 2mg/Nitro 400mcg/Heparin 1500units) 1 syringe added to field was administered by Harley Ferrera MD; for vasodilation; 9:20:58 H&P Date Dictated: 09/23/2017 Within 30 days and on chart., H&P Addendum completed by physician on day of procedure. (MUST COMPLETE FOR ALL OUTPATIENTS). 9:21:00 Pre-procedure instructions explained to patient. 9:21:03 Family in waiting room. 9:21:05 Patient NPO since Midnight. 9:21:35 Patient allergic to Other allergyPCN 9:21:42 Was the patient premedicated? Yes 9:21:43 Is patient on blood thinner?No 9:21:48 Patient diabetic? Yes. 9:21:49 If diabetic: On Metformin? Yes 9:21:52 If on Metformin: Last Dose? 09/22/2017 9:21:58 Snore? Yes 9:21:59 Sleep apnea? Yes 9:22:12 Airway obstruction? Yes COPD, Emphazema 9:22:18 Dentures? No ? 9:22:21 Patient pain scale 0/10 ?. 9:22:27 IV patent on arrival in left forearm with 0.9% NaCl at [facility]. 9:22:43 Lab results completed and on chart. 9:23:08 Lab Result : BUN 23 mg/dl 9:23:08 Lab Result : Creatinine 0.6 mg/dl 9:23:08 Lab Result : Hemoglobin 56.9 g/dl 9:23:13 Right Radial & Right Groin area was prepped with chlora-prep and draped in sterile fashion 9:23:14 Alarms reviewed by R. N. 9:23:15 Sharps counted by scrub and verified by R.N. 9:23:15 Physician paged 9:23:17 Physician arrived 9:23:19 --------ALL STOP TIME OUT------ 9:23:20 Final Timeout: patient, procedure, and site verified with staff and physician. All members of the team are in agreement. 9:23:21 Right Radial & Right Groin site verified by team. 9:23:25 Physical assessment completed. ASA score P 2 - A patient with mild systemic disease as per Harley Ferrera MD. 9:23:29 Sedation plan: IV Moderate Sedation Medication:Versed, Fentanyl 9:23:39 Use device set Radial Dx or PCI 9:23:42 ACIST Syringe (28878) opened to sterile field. 9:23:43 Medline Cath Pack ([id number]) opened to sterile field. 9:23:44 Bag Decanter (2002S) opened to sterile field. 9:23:44 SHEATH 6FR Slender ([id number]) opened to sterile field. 9:23:45 DIAGNOSTIC WIRE .035 260cm J wire (245042) opened to sterile field. 9:23:46 ACIST Hand Control (36664) opened to sterile field. 9:23:46 ACIST Manifold (92258) opened to sterile field. 9:23:49 MBrace Wrist Support ([id number]) opened to sterile field. 9:23:50 NEEDLE Cook 21G 4cm Radial (I87344) opened to sterile field. 9:23:52 Fentanyl 50 mcg I.V. was administered by Shweta Stanley RN; for sedation; 9:24:00 Versed 1 mg I.V. was administered by Shweta Stanley RN; for sedation; 9:31:03 Versed 1 mg I.V. was administered by Shweta Stanley RN; for sedation; 9:31:09 Fentanyl 50 mcg I.V. was administered by Shweta Stanley RN; for sedation; 9:34:38 Zero performed for pressure channel P1 9:34:49 Procedure started. 9:35:05 Local anesthetic to right radial artery with Lidocaine 2% by Harley Ferrera MD.INITIAL ACCESS ONLY 9:35:18 A 6 Fr Short sheath was inserted into the Right Radial artery 9:39:09 A DIAGNOSTIC Alden 110cm 5Fr catheter ([id number]) was advanced over the wire and used for Procedure. 9:40:38 LV angiography performed. 9:41:15 LV gram done using MONSIVAIS 9:41:44 EF : 50 % 9:42:55 RCA angiography performed. 9:43:29 Catheter removed. 9:43:47 A DIAGNOSTIC Camden 110cm 5 Fr catheter ([id number]) was advanced over the wire and used for Procedure. 9:43:51 LCA angiography performed. 9:46:06 Catheter removed. 9:47:18 TR BAND Standard ([id number]) opened to sterile field. 9:47:38 Sheath removed intact; hemostasis achieved with Mechanical Compression to the Right Radial artery. 9:47:41 Procedure ended.(Physican Out) 9:48:09 Fluoroscopy time 03.00 minutes. 9:48:13 Fluoroscopy dose: 960 mGy 9:48:13 Flurop Dose total: 960 9:48:18 Contrast amount:Isovue 300 67ml. 9:48:20 Sharps counted by scrub and verified by R.N. 9:48:24 TR band inflated with 12cc of air. 9:48:25 Insertion/operative site no bleeding no hematoma. 9:48:27 Post Procedure Pulses reassessed and unchanged 9:48:32 Post-procedure physical assessment completed. ASA score P 2 - A patient with mild systemic disease as per Harley Ferrera MD. 9:48:36 Post procedure rhythm: unchanged. 9:48:40 Estimated blood loss: 10 ml 9:48:45 Post procedure instruction explained to patient.Patient verbalizes understanding. 9:48:58 Procedure type changed to Cath procedure, Diagnostic procedure, LHC, LHC w/Coronaries, Miscellaneous Procedures, Moderate Sedation up to 15 minutes 9:48:59 Procedure and supply charges have been captured, reviewed, submitted and are correct. 9:50:03 Procedure Complication : No complications 9:50:06 Vital chart was stopped 9:50:07 See physician's report for complete and final results. 9:50:09 Report given to Pre/Post Procedure Room. 9:50:12 Patient transfered to Pre/Post Procedure Room with Stretcher. 9:50:15 Procedure ended. 9:50:15 Full Disclosure recording stopped 9:50:18 End room use (Document Last) Device Usage Item Name Manufacture Quantity Catalog Hospital Part Current Minima l Lot# / Number Charge Number Stock Stock Serial# Code ACIST Acist 1 02589 096329 122676 938822 20 Syringe Medical (46322) Systems Inc Medline Cath Cardinal 1 [id number] 432292 57790 177858 5 Pack Health ([id number]) Bag Decanter Microtek 1 2001S 003036 83947 956613 5 (2001S) Medical Inc. SHEATH 6FR Terumo 1 [id number] 802708 912255 735580 40 Slender ([id number]) DIAGNOSTIC [facility] Willian 1 [id number] 796555 346930 644753 30 WIRE .035 260cm J wire (837983) ACIST Hand Acist 1 29801 224112 205838 274739 5 Control Medical (56256) Systems Inc ACIST Acist 1 41350 477598 358496 797492 5 Manifold Medical (62841) Systems Inc MBrace Wrist Advanced 1 140-0250-00 613661 74867 264351 5 Support Vascular ([id number]) Dynamics NEEDLE Cook Cook Medical 1 [id number] 923357 294659 178552 5 21G 4cm Radial ([id number]) DIAGNOSTIC Terumo 1 40-5023 176417 423850 780790 5 Alden 110cm 5Fr catheter (945013) DIAGNOSTIC Terumo 1 40-5013 799495 984340 741386 5 Camden 110cm 5 Fr catheter (064380) TR BAND Terumo 1 [id number] 700583 207812 582147 40 Standard ([id number]) Signature Audit [place] Stage Time Signature Unsigned Intra-Procedure 09/23/2017 Kayla Fang 9:51:14 AM RT(R) Signatures Monitor : Kayla Fang Signature : RT Date : Time : [facility] [address] [place] [address]
[2017-09-23] MEDS ORDERED: CATAPRES0.1 MG PO (07:22)
[2017-09-23] MEDS ORDERED: ULTRAM50 MG PO (07:23)
[2017-09-23 07:48] LABS: BASOPHILS 0.1 % (0-2); EOSINOPHILS 0.8 % (0-7); HEMATOCRIT 56.9 % (42.0-54.0); HEMOGLOBIN 18.7 g/dL (13.5-17.5); IMMATURE GRANULOCYTES 0.4 % (0-5); LYMPHOCYTES 19.3 % (15-50); MCH 29.8 pg (26.0-34.0); MCHC 32.9 g/dL (31.0-37.0); MCV 90.6 fL (80.0-100.0); MEAN PLATELET VOLUME 10.4 fL (7.4-10.4); MONOCYTES 5.4 % (2-11); PLATELET COUNT 163 10x3/uL (130-400); RBC 6.28 10x6/uL (4.20-6.10); WBC 8.3 10x3/uL (4.8-10.8)
[2017-09-23 07:58] VITALS: BP 145/95; Ht 177.8 cm; Wt 119.1 kg
[2017-09-23 08:06] LABS: CALC OSMOLALITY 284 mosm/kg (275-300); CALCIUM 9.1 mg/dL (8.5-10.1); CARBON DIOXIDE 31.5 mmol/L (21.0-32.0); CHLORIDE - SERUM 99 mmol/L (98-107); CREATININE - SERUM 0.6 mg/dL (0.6-1.3); POTASSIUM - SERUM 4.7 mmol/L (3.5-5.1); SODIUM 139 mmol/L (136-145); UREA NITROGEN 23 mg/dL (7-18); eGFR NON AFRICAN AMERICAN > 90 mL/min (90-120)
[2017-09-23 08:10] LABS: GLUCOSE 146 mg/dL (74-106)
== END 2017-09-23 12:20 | disposition home or self-care (01) ==
LOC: D.CATH 06:38
PROVIDERS: Internal Medicine Cardiovascular Disease
DX: R07.89 Other chest pain (principal); R94.39 Abnormal result of other cardiovascular function study; J44.9 Chronic obstructive pulmonary disease, unspecified; E11.40 Type 2 diabetes mellitus with diabetic neuropathy, unspecified; I10 Essential (primary) hypertension; E78.5 Hyperlipidemia, unspecified; G47.30 Sleep apnea, unspecified; F32.9 Major depressive disorder, single episode, unspecified; Z82.49 Family history of ischemic heart disease and other diseases of the circulatory system; Z88.0 Allergy status to penicillin; Z79.4 Long term (current) use of insulin; Z79.84 Long term (current) use of oral hypoglycemic drugs; Z79.891 Long term (current) use of opiate analgesic; Z99.81 Dependence on supplemental oxygen; Z79.899 Other long term (current) drug therapy; F17.200 Nicotine dependence, unspecified, uncomplicated

== ENCOUNTER → 2018-12-08 10:33 | Outpatient (CLI) | payer MEDICARE, MEDICAID ==
[~2018-12-08 10:33] MED LIST changes: +ABILIFY10 MG PO; +ASPIRIN81 MG PO; +CATAPRES0.1 MG PO
== END | disposition home or self-care (01) ==
LOC: D.RT 10:33
DX: J44.9 Chronic obstructive pulmonary disease, unspecified (principal)

== ENCOUNTER 2019-01-03 05:32 | Day surgery (SDC) | payer MEDICARE, MEDICAID ==
[~2019-01-03] VITALS: Ht 177.8 cm; Wt 124.1 kg
[~2019-01-03 05:32] MED LIST changes: -ABILIFY10 MG PO; -ASPIRIN81 MG PO
[2019-01-03 06:01] LABS: APTT 27.3 SECONDS (22.8-39.4); INR 0.95 (0.85-1.17); PROTIME 12.2 SECONDS (11.6-15.0)
[2019-01-03 06:04] LABS: ALBUMIN 3.7 g/dL (3.4-5.0); ALKALINE PHOSPHATASE 127 U/L (46-116); ALT (SGPT) 43 U/L (10-68); BILIRUBIN - TOTAL 1.06 mg/dL (0.2-1.3); CALC OSMOLALITY 279 mosm/kg (275-300); CALCIUM 8.9 mg/dL (8.5-10.1); CARBON DIOXIDE 33.7 mmol/L (21.0-32.0); CHLORIDE - SERUM 101 mmol/L (98-107); CREATININE - SERUM 0.9 mg/dL (0.6-1.3); GLUCOSE 137 mg/dL (74-106); POTASSIUM - SERUM 4.2 mmol/L (3.5-5.1); PROTEIN - SERUM 7.9 g/dL (6.4-8.2); SODIUM 139 mmol/L (136-145); UREA NITROGEN 12 mg/dL (7-18); eGFR NON AFRICAN AMERICAN > 90 mL/min (90-120)
[2019-01-03] MEDS ORDERED: ASPIRIN81 MG PO (06:35)
[2019-01-03 06:36] LABS: BASOPHILS 0.1 % (0-2); EOSINOPHILS 1.2 % (0-7); HEMATOCRIT 50.9 % (42.0-54.0); HEMOGLOBIN 16.8 g/dL (13.5-17.5); IMMATURE GRANULOCYTES 0.1 % (0-5); LYMPHOCYTES 22.3 % (15-50); MCH 30.7 pg (26.0-34.0); MCV 93.1 fL (80.0-100.0); MEAN PLATELET VOLUME 10.5 fL (7.4-10.4); MONOCYTES 5.9 % (2-11); NEUTROPHILS 70.4 % (40-80); PLATELET COUNT 189 10x3/uL (130-400); RBC 5.47 10x6/uL (4.20-6.10); RDW 14.5 % (11.5-14.5); WBC 7.4 10x3/uL (4.8-10.8)
[2019-01-03 06:39] VITALS: BP 103/61; Ht 177.8 cm; Wt 124.1 kg
--- NOTE | 2019-01-03 09:00 | NUR ---
DC INSTRUCTIONS GIVEN TO PT/FAMILY. STATE UNDERSTANDING. DC'D IV CATH FULLY INTACT.
--- NOTE | 2019-01-03 09:02 | NUR ---
PT LEFT UNIT VIA WC AT 0970
--- NOTE | 2019-01-03 17:14 | OP ---
PATIENT NAME: CARON FLOOD MEDICAL RECORD: [id number] :63 LOCATION:[facility] ADMISSION DATE: SURGEON: AMERICA GOODWIN MD DATE OF OPERATION: 01/03/2019 PROCEDURE: EGD with biopsy. REFERRING PHYSICIAN: Dr. Sean Almaraz. INDICATIONS: Mr. Flood is a very pleasant 53-year-old gentleman with a history of obstructive sleep apnea, asthma, epilepsy and diabetes mellitus. He has had symptoms of nausea, vomiting, heartburn, upper abdominal pain. He presents for outpatient EGD. PREMEDICATIONS: Total IV anesthesia (propofol 160 mg). INSTRUMENT: Olympus video gastroscope. PROCEDURE AND FINDINGS: After receiving informed consent, Mr. Flood's posterior pharynx was anesthetized with Cetacaine spray, placed in left lateral decubitus position, sedated as per anesthesia. After achieving adequate level of sedation, gastroscope was introduced per orally and advanced into the duodenum without difficulty. The esophageal mucosa was notable for an irregular Z-line, but there were no esophageal ulcers, strictures or masses. Biopsies were taken from the distal third of the esophagus. A small hiatal hernia was present. Gastric mucosa was remarkable for multiple erosions, scattered throughout the body of the stomach and antrum. Antral biopsies were obtained to rule out Helicobacter pylori. In the proximal antrum, along the greater curve was a shallow small ulcer, nonhemorrhagic. No lesions were seen in the cardia or fundus. Pylorus was patent and competent. Duodenal mucosa was notable from mild patchy erythema in the duodenal bulb and then confluent erythema in the first and second portion of the duodenum. Biopsies were taken from the second portion of the duodenum to rule out celiac disease. The gastroscope was then withdrawn. Mr. Flood tolerated the procedure well. No immediate complications. ASSESSMENT: 1. Irregular Z-line consistent with esophagitis, status post biopsy of distal third of the esophagus. 2. Small hiatal hernia. 3. Moderate erosive gastritis. 4. Small gastric ulcer. 5. Duodenitis. RECOMMENDATIONS: 1. Follow up histopathology. 2. Continue pantoprazole 20 mg daily. 3. Sucralfate 1 gram t.i.d. 4. Avoid alcohol. 5. Avoid nonsteroidal anti-inflammatory drugs. 6. Follow up EGD in 3 months. 7. Document healing of gastric ulcer. TRANSINT:[id number] Voice Confirmation ID: [id number] DOCUMENT ID: [id number] OPERATIVE REPORT [id number] CRAON FLOOD TERRI MD at 1714 CC: SESAR RAGLAND MD and SEAN ALMARAZ MD [phone] DICTATION DATE: 01/03/19823 HOUSE SERVANT: 01/03/19 0858 DEP SD 01/03/19 [place] [id number] [place] [id number]
== END 2019-01-03 09:06 | disposition home or self-care (01) ==
LOC: D.OPS 05:32
PROVIDERS: Anesthesiology; ATTEND Internal Medicine Gastroenterology
DX: K44.9 Diaphragmatic hernia without obstruction or gangrene (principal); K29.00 Acute gastritis without bleeding; K25.9 Gastric ulcer, unspecified as acute or chronic, without hemorrhage or perforation; K29.80 Duodenitis without bleeding; Z01.812 Encounter for preprocedural laboratory examination

== ENCOUNTER 2019-05-15 11:05 | Day surgery (SDC) | payer MEDICARE, MEDICAID ==
[~2019-05-15] VITALS: Ht 177.8 cm; Wt 120.9 kg
[~2019-05-15 11:05] MED LIST changes: +ASPIRIN81 MG PO
[2019-05-15 11:30] LABS: HEMATOCRIT 55.2 % (42.0-54.0); HEMOGLOBIN 18.3 g/dL (13.5-17.5); MCH 30.3 pg (26.0-34.0); MCHC 33.2 g/dL (31.0-37.0); MCV 91.5 fL (80.0-100.0); MEAN PLATELET VOLUME 9.4 fL (7.4-10.4); RBC 6.03 10x6/uL (4.20-6.10); RDW 14.8 % (11.5-14.5); WBC 6.1 10x3/uL (4.8-10.8)
[2019-05-15 11:46] LABS: ALBUMIN 3.3 g/dL (3.4-5.0); ANION GAP 7.8 mmol/L (8-16); BILIRUBIN - TOTAL 1.18 mg/dL (0.2-1.3); CALCIUM 9.2 mg/dL (8.5-10.1); CARBON DIOXIDE 36.4 mmol/L (21.0-32.0); CREATININE - SERUM 1.1 mg/dL (0.6-1.3); POTASSIUM - SERUM 4.2 mmol/L (3.5-5.1); PROTEIN - SERUM 7.6 g/dL (6.4-8.2)
[2019-05-15] MEDS ORDERED: ABILIFY10 MG PO (13:19)
[2019-05-15 13:20] VITALS: BP 133/80; Ht 177.8 cm; Wt 120.9 kg
--- NOTE | 2019-05-15 17:43 | NUR ---
1500 IV REMOVED AND INSTRUCTIONS GIVEN
--- NOTE | 2019-05-16 16:35 | OP ---
PATIENT NAME: CARON FLOOD MEDICAL RECORD: [id number] :63 LOCATION:[facility] ADMISSION DATE: SURGEON: DAYNE MURRAY DO DATE OF OPERATION: 05/15/2019 PROCEDURE: EGD with biopsies. INDICATIONS FOR PROCEDURE: A 3-month followup to document healing of gastric ulcer. SCOPE: Olympus video gastroscope. MEDICATIONS: Propofol 200 mg IV per anesthesia. ESTIMATED BLOOD LOSS: Minimal. COMPLICATIONS: None. FINDINGS: Informed consent was given. The patient was made comfortable with the above medication. After reaching an adequate level of sedation by slow IV push, the patient was placed in his left side. The endoscope was advanced under direct visualization through the mouth to the second portion of the duodenum with ease. There was evidence of moderate esophagitis involving the entire esophagus. Random cold forceps biopsies were taken from the midesophagus to submit for histopath and to rule out the presence of eosinophilic esophagitis. At the GE junction, there was evidence of LA class C reflux-induced esophagitis. The endoscope was advanced beyond the GE junction into the stomach and retroflexed to view the cardia, where a small sliding hiatal hernia was present. There was no gastric ulcer present in the stomach, but there was diffuse gastritis characterized by erythema and granularity with some erosions noted. Random cold forceps biopsies were taken from the antrum and incisura to submit for histopathology and to rule out the presence of H. pylori. The endoscope was advanced beyond the pylorus into the duodenum, which appeared normal down to the second portion. The endoscope was withdrawn from the patient. The patient tolerated the procedure well and there were no complications. IMPRESSION: 1. LA class C reflux-induced esophagitis with evidence of proximal reflux. 2. Small sliding hiatal hernia. 3. Gastritis. PLAN AND RECOMMENDATIONS: 1. Discharge home when recovery parameters are met. 2. Follow up biopsy specimen results. 3. GERD diet and reflux precautions. 4. Continue current medications. 5. Notify GI clinic if symptoms return or reflux worsens. TRANSINT:[id number] Voice Confirmation ID: [id number] DOCUMENT ID: [id number] OPERATIVE REPORT [id number] CARON FLOOD DAYNE MURRAY DO at 9944 CC: [id number] DICTATION DATE: 05/15/19 9623 DEMURRAGE WORKER: 05/15/19 1539 [facility] [place] 05/15/19 [facility] [address] [place] [address]
== END 2019-05-15 15:15 | disposition home or self-care (01) ==
LOC: D.OPS 11:05
PROVIDERS: Anesthesiology; ATTEND Internal Medicine Gastroenterology
DX: K25.9 Gastric ulcer, unspecified as acute or chronic, without hemorrhage or perforation (principal); K44.9 Diaphragmatic hernia without obstruction or gangrene; K29.70 Gastritis, unspecified, without bleeding

== ENCOUNTER 2019-05-26 17:57 | Emergency (ER) | payer MEDICARE, MEDICAID ==
[~2019-05-26] VITALS: Ht 177.8 cm; Wt 120.5 kg
[~2019-05-26 17:57] MED LIST changes: +ABILIFY10 MG PO
[2019-05-26 18:06] VITALS: Ht 177.8 cm; Wt 120.5 kg
[2019-05-26 18:36] LABS: BASOPHILS 0.2 % (0-2); EOSINOPHILS 0 % (0-7); HEMATOCRIT 56.1 % (42.0-54.0); HEMOGLOBIN 17.9 g/dL (13.5-17.5); IMMATURE GRANULOCYTES 1.2 % (0-5); LYMPHOCYTES 11.7 % (15-50); MCH 30.1 pg (26.0-34.0); MCHC 31.9 g/dL (31.0-37.0); MCV 94.4 fL (80.0-100.0); MEAN PLATELET VOLUME 10.3 fL (7.4-10.4); NEUTROPHILS 82.9 % (40-80); PLATELET COUNT 186 10x3/uL (130-400); RBC 5.94 10x6/uL (4.20-6.10); RDW 14.2 % (11.5-14.5)
[2019-05-26 18:44] LABS: INR 1.03 (0.85-1.17)
[2019-05-26 18:45] LABS: APTT 27.9 SECONDS (22.8-39.4)
[2019-05-26 18:50] LABS: ALBUMIN 3.2 g/dL (3.4-5.0); ALKALINE PHOSPHATASE 109 U/L (46-116); ALT (SGPT) 31 U/L (10-68); CALC OSMOLALITY 279 mosm/kg (275-300); CARBON DIOXIDE 26.9 mmol/L (21.0-32.0); CHLORIDE - SERUM 94 mmol/L (98-107); GLUCOSE 260 mg/dL (74-106); POTASSIUM - SERUM 4.8 mmol/L (3.5-5.1); PROTEIN - SERUM 6.6 g/dL (6.4-8.2); SODIUM 134 mmol/L (136-145); UREA NITROGEN 22 mg/dL (7-18); eGFR NON AFRICAN AMERICAN 82 mL/min (90-120)
[2019-05-26 19:02] LABS: CREATINE KINASE 39 UL (21-232); MAGNESIUM - SERUM 1.4 mg/dL (1.8-2.4); THYROID STIMULATING HORMONE 0.68 uIU/mL (0.36-3.74); TROPONIN-I 0.042 ng/mL (0.000-0.060)
[2019-05-26 19:34] LABS: APPEARANCE CLEAR (CLEAR); BILIRUBIN NEGATIVE (NEGATIVE); COLOR YELLOW (YELLOW); GLUCOSE 1000 mg/dL (NEGATIVE); KETONE LARGE mg/dL (NEGATIVE); NITRITE NEGATIVE (NEGATIVE); PROTEIN 1+ mg/dL (NEGATIVE); SPECIFIC GRAVITY 1.025 (1.005-1.020); UROBILINOGEN NORMAL (NORMAL)
[2019-05-26 19:38] LABS: UDS - AMPHET NEGATIVE QUAL (NEGATIVE); UDS - BARB NEGATIVE QUAL (NEGATIVE); UDS - BENZO NEGATIVE QUAL (NEGATIVE); UDS - COCAINE NEGATIVE QUAL (NEGATIVE); UDS - OPIATE NEGATIVE QUAL (NEGATIVE); UDS - PCP NEGATIVE QUAL (NEGATIVE); UDS - THC NEGATIVE QUAL (NEGATIVE)
[2019-05-26 20:56] VITALS: BP 161/85
== END 2019-05-26 20:57 | disposition home or self-care (01) ==
LOC: D.ER 17:57
PROVIDERS: Emergency Medicine
DX: E11.9 Type 2 diabetes mellitus without complications (principal); R51 Headache; J44.9 Chronic obstructive pulmonary disease, unspecified; I10 Essential (primary) hypertension; W18.30XA Fall on same level, unspecified, initial encounter

== ENCOUNTER 2019-06-22 14:36 | Outpatient (CLI) | payer MEDICARE, MEDICAID ==
[~2019-06-22] VITALS: Ht 177.8 cm; Wt 119.1 kg
[2019-06-22 15:57] VITALS: BP 155/108; Ht 177.8 cm; Wt 119.1 kg
[2019-06-22] MEDS ORDERED: FUROSEMIDE20 MG PO (19:58)
[2019-06-22] MEDS ORDERED: LASIX40 MG PO (19:58)
[2019-06-22] MEDS ORDERED: LYRICA75 MG PO (20:01)
== END 2019-06-22 15:56 ==
LOC: D.RAD 14:36 → D.ER 14:36 → D.CT 14:36 → EDSTATUS 15:00 → D.RAD 15:56
PROVIDERS: ATTEND Family Medicine
DX: J96.11 Chronic respiratory failure with hypoxia (principal)

== ENCOUNTER 2019-06-22 15:56 | Inpatient (IN) | payer MEDICARE, MEDICAID ==
[~2019-06-22] VITALS: Ht 177.8 cm; Wt 118.8 kg
[2019-06-22 16:31] LABS: BASOPHILS 0.3 % (0-2); EOSINOPHILS 1.4 % (0-7); HEMATOCRIT 57.4 % (42.0-54.0); HEMOGLOBIN 17.9 g/dL (13.5-17.5); IMMATURE GRANULOCYTES 0.3 % (0-5); LYMPHOCYTES 20.3 % (15-50); MCH 28.4 pg (26.0-34.0); MCHC 31.2 g/dL (31.0-37.0); MEAN PLATELET VOLUME 9.4 fL (7.4-10.4); MONOCYTES 5.4 % (2-11); NEUTROPHILS 72.3 % (40-80); PLATELET COUNT 191 10x3/uL (130-400); RBC 6.31 10x6/uL (4.20-6.10); RDW 15.1 % (11.5-14.5); WBC 7.6 10x3/uL (4.8-10.8)
[2019-06-22 17:00] VITALS: BP 178/96
[2019-06-22 17:12] LABS: APTT 28.3 SECONDS (22.8-39.4); CKMB 0.5 U/L (0.0-3.6); CREATINE KINASE 31 UL (21-232); INR 0.99 (0.85-1.17); PRO BNP 1372 pg/mL (0-125); PROTIME 12.6 SECONDS (11.6-15.0); TROPONIN-I < 0.017 ng/mL (0.000-0.060)
[2019-06-22 17:29] VITALS: BP 162/95
--- NOTE | 2019-06-22 17:30 | NUR ---
CHANGED O2 FROM MEDICAL AIR TO O2 4.5L TO INCREASE SATS FROM 84% TO 97%
[2019-06-22 19:00] VITALS: BP 134/80
[2019-06-22 19:05] VITALS: BP 210/126
[2019-06-22 19:19] VITALS: BP 189/100
--- NOTE | 2019-06-22 19:35 | NUR ---
PT ARRIVED TO UNIT VIA STRETCHER ESCORTED BY SPOUSE AND ER NURSE. PT WITH NAUSEA AND VOMITING ON ARRIVAL AND C/O SEVERE HEADACHE. IV TO RIGHT AC SALINE LOCKED. ORIENTED TO ROOM AND CALL LIGHT.
--- NOTE | 2019-06-22 19:44 | NUR ---
GAVE DILAUDID 1 MG IVP AND ZOFRAN 4 MG IVP FOR C/O NAUSEA / VOMITING AND SEVERE HEADACHE. WILL MONITOR FOR EFFECTIVENESS.
[2019-06-22] MEDS ORDERED: LASIX40 MG PO (19:58)
[2019-06-22] MEDS ORDERED: FUROSEMIDE20 MG PO (19:58)
[2019-06-22] MEDS ORDERED: LYRICA75 MG PO (20:01)
--- NOTE | 2019-06-22 21:13 | NUR ---
HS MEDICATIONS GIVEN. FSBS 197 THIS CHECK REQUIRING COVERAGE WITH 2 UNITS OF INSULIN PER SLIDING SCALE.
--- NOTE | 2019-06-22 22:20 | NUR ---
SPOUSE RETURNED TO STAY OVERNIGHT WITH PT.
[2019-06-22 22:50] VITALS: BP 134/80; BMI 37.6
--- NOTE | 2019-06-22 23:04 | NUR ---
ADMISSION ASSESSMENT AND HISTORY COMPLETE.
--- NOTE | 2019-06-22 23:24 | NUR ---
PT C/O NAUSEA / VOMITING AGAIN AND PAIN IN HEAD INCREASING. GAVE DILAUDID 1MG IVP AND ZOFRAN 4 MG IVP FOR PAIN AND N/V. WILL MONITOR FOR EFFECTIVENESS.
--- NOTE | 2019-06-23 00:15 | NUR ---
PT RESTING NOW WITH EYES CLOSED. IS AT BEDSIDE.
[2019-06-23 01:00] VITALS: BP 181/108
--- NOTE | 2019-06-23 01:17 | NUR ---
BLOOD PRESSURE 181/108 THIS CHECK. CALLED AND RECEIVED ORDER FOR CLONIDINE 0.1 MG PO Q6HR PRN FOR SBP >180. GAVE FIRST DOSE NOW.
[2019-06-23 05:00] VITALS: BP 125/78
[2019-06-23 06:10] LABS: BASOPHILS 0.2 % (0-2); EOSINOPHILS 0.6 % (0-7); HEMATOCRIT 55.5 % (42.0-54.0); HEMOGLOBIN 17.2 g/dL (13.5-17.5); IMMATURE GRANULOCYTES 0.2 % (0-5); MCH 28.5 pg (26.0-34.0); MEAN PLATELET VOLUME 10.2 fL (7.4-10.4); MONOCYTES 5.4 % (2-11); NEUTROPHILS 76.6 % (40-80); PLATELET COUNT 214 10x3/uL (130-400); RBC 6.03 10x6/uL (4.20-6.10); RDW 15.2 % (11.5-14.5); WBC 8.3 10x3/uL (4.8-10.8)
[2019-06-23 06:41] LABS: CALC OSMOLALITY 275 mosm/kg (275-300); CALCIUM 8.5 mg/dL (8.5-10.1); CARBON DIOXIDE 32.7 mmol/L (21.0-32.0); CHLORIDE - SERUM 98 mmol/L (98-107); CREATININE - SERUM 0.8 mg/dL (0.6-1.3); MAGNESIUM - SERUM 1.7 mg/dL (1.8-2.4); PHOSPHOROUS 3.4 mg/dL (2.5-4.9); POTASSIUM - SERUM 4.1 mmol/L (3.5-5.1); SODIUM 135 mmol/L (136-145); UREA NITROGEN 14 mg/dL (7-18); eGFR NON AFRICAN AMERICAN > 90 mL/min (90-120)
[2019-06-23 06:42] LABS: GLUCOSE 183 mg/dL (74-106)
--- NOTE | 2019-06-23 07:45 | NUR ---
PT SITTING UP IN BED WITH SPOUSE AT BEDSIDE. RESP EVEN AND UNLABORED. O2 @ 4L NC IN PLACE. RATES PAIN 4/10 AT THIS TIME, CO HEADACHE. SALINE LOC TO RIGHT AC, SITE WITHOUT REDNESS OR EDEMA. DENIES FURTHER NEEDS AT THIS TIME. CL WITHIN REACH. ENCOURAGED TO CALL WITH NEEDS. CONTINUE POC
[2019-06-23 08:45] VITALS: BP 146/84
[2019-06-23 12:13] VITALS: Ht 177.8 cm; Wt 118.8 kg
[2019-06-23 12:43] VITALS: BP 170/106
[2019-06-23 16:45] VITALS: BP 166/73
--- NOTE | 2019-06-23 19:00 | NUR ---
BEDSIDE REPORT RECEIVED AND CARE OF PT ASSUMED. PT LYING IN SUPINE POSITION VISITING WITH SPOUSE. IV TO RIGHT AC SALINE LOCKED. O2 IN USE VIA NC AT 4L. TELEMETRY IN PLACE AND PT READING SR AT THIS ASSESSMENT. WILL MONITOR FOR NEEDS.
--- NOTE | 2019-06-23 19:30 | NUR ---
RECEIVED ORDER FROM MACK LOWE APN FOR BENADRYL IV 25 MG Q6HR FOR C/O ITCHING.
[2019-06-23 20:01] VITALS: BP 137/77
--- NOTE | 2019-06-23 21:18 | NUR ---
HS MEDICATIONS GIVEN TO INCLUDE 400 MG MAG OX PO PER ELECTROLYTE PROTOCOL. FSBS 241 THIS CHECK REQUIRING COVERAGE WITH 8 UNITS OF INSULIN PER SLIDING SCALE. GAVE DILAUDID, ZOFRAN AND BENADRYL PER REQUEST FOR PAIN, NAUSEA AND ITCHING. WILL MONITOR FOR EFFECTIVENESS.
[2019-06-24] VITALS: BP 155/91
[2019-06-24 04:00] VITALS: BP 183/108
[2019-06-24 05:41] LABS: BASOPHILS 0.2 % (0-2); EOSINOPHILS 1.7 % (0-7); HEMATOCRIT 54.7 % (42.0-54.0); HEMOGLOBIN 16.7 g/dL (13.5-17.5); IMMATURE GRANULOCYTES 0.2 % (0-5); MCHC 30.5 g/dL (31.0-37.0); MCV 91.6 fL (80.0-100.0); MEAN PLATELET VOLUME 10.7 fL (7.4-10.4); MONOCYTES 8.3 % (2-11); NEUTROPHILS 72.6 % (40-80); PLATELET COUNT 215 10x3/uL (130-400); RBC 5.97 10x6/uL (4.20-6.10); WBC 6.4 10x3/uL (4.8-10.8)
[2019-06-24 05:54] LABS: CALC OSMOLALITY 280 mosm/kg (275-300); CALCIUM 8.4 mg/dL (8.5-10.1); CHLORIDE - SERUM 99 mmol/L (98-107); CREATININE - SERUM 0.8 mg/dL (0.6-1.3); GLUCOSE 222 mg/dL (74-106); MAGNESIUM - SERUM 1.9 mg/dL (1.8-2.4); PHOSPHOROUS 3.9 mg/dL (2.5-4.9); POTASSIUM - SERUM 4.4 mmol/L (3.5-5.1); SODIUM 136 mmol/L (136-145); UREA NITROGEN 17 mg/dL (7-18); eGFR NON AFRICAN AMERICAN > 90 mL/min (90-120)
[2019-06-24 07:59] VITALS: BP 177/99
--- NOTE | 2019-06-24 09:49 | NUR ---
PT ALERT X 4. BREATH SOUNDS DIMINISHED TO LOWER LOBES, 4L O2 PER NC. TELEMETRY IN PLACE. IV TO RIGHT AC, SALINE LOCKED. PT REPORTING PAIN OF 9/10, MEDICATED PER ORDERS, WILL MONITOR. BED LOW, CALL LIGHT IN REACH. NO OTHER NEEDS AT THIS TIME.
[2019-06-24 12:42] VITALS: BP 160/90
--- NOTE | 2019-06-24 14:54 | NUR ---
DISCHARGE PAPERWORK SIGNED, ALL QUESTIONS ANSWERED. IV TO RIGHT AC DC'D, TIP INTACT. PT REQUESTED TO AMBULATE OUT.
== END 2019-06-24 14:55 | disposition home or self-care (01) | DRG 191 ==
LOC: D.ER 15:56 → D.MS 18:50
PROVIDERS: Family Medicine; ADMIT Internal Medicine Nephrology; ATTEND Internal Medicine Nephrology
DX: J44.1 Chronic obstructive pulmonary disease with (acute) exacerbation (principal); F17.203 Nicotine dependence unspecified, with withdrawal; J96.11 Chronic respiratory failure with hypoxia; I50.32 Chronic diastolic (congestive) heart failure; D75.1 Secondary polycythemia; G47.33 Obstructive sleep apnea (adult) (pediatric); I11.0 Hypertensive heart disease with heart failure; M19.90 Unspecified osteoarthritis, unspecified site; M54.9 Dorsalgia, unspecified; K21.9 Gastro-esophageal reflux disease without esophagitis; E66.9 Obesity, unspecified; Z68.37 Body mass index [BMI] 37.0-37.9, adult

== ENCOUNTER 2019-07-29 17:29 | Inpatient (IN) | payer MEDICARE, MEDICAID ==
[~2019-07-29] VITALS: Ht 177.8 cm; Wt 118.8 kg
[~2019-07-29 17:29] MED LIST changes: +FUROSEMIDE20 MG PO; +LASIX40 MG PO
[2019-07-29] MEDS ORDERED: INDERAL 40 MG T40 MG PO (17:39)
[2019-07-29] MEDS ORDERED: PROTONIX20 MG PO (17:40)
[2019-07-29] MEDS ORDERED: K-TAB10 MEQ PO (17:40)
[2019-07-29] MEDS ORDERED: CATAPRES0.1 MG PO (17:40)
[2019-07-29 17:49] LABS: APPEARANCE CLEAR (CLEAR); BILIRUBIN NEGATIVE (NEGATIVE); COLOR STRAW (YELLOW); GLUCOSE 1000 mg/dL (NEGATIVE); KETONE LARGE mg/dL (NEGATIVE); NITRITE NEGATIVE (NEGATIVE); PROTEIN TRACE mg/dL (NEGATIVE); SPECIFIC GRAVITY 1.015 (1.005-1.020); UROBILINOGEN NORMAL (NORMAL)
[2019-07-29 17:58] LABS: BASOPHILS 0.2 % (0-2); EOSINOPHILS 0.3 % (0-7); HEMATOCRIT 56.1 % (42.0-54.0); HEMOGLOBIN 17.4 g/dL (13.5-17.5); IMMATURE GRANULOCYTES 0.3 % (0-5); LYMPHOCYTES 18.9 % (15-50); MCH 27.2 pg (26.0-34.0); MCV 87.8 fL (80.0-100.0); MEAN PLATELET VOLUME 9.7 fL (7.4-10.4); MONOCYTES 5.6 % (2-11); NEUTROPHILS 74.7 % (40-80); PLATELET COUNT 134 10x3/uL (130-400); RBC 6.39 10x6/uL (4.20-6.10); WBC 6.2 10x3/uL (4.8-10.8)
[2019-07-29 18:05] VITALS: BP 180/92
[2019-07-29 18:12] LABS: CALC OSMOLALITY 286 mosm/kg (275-300); CALCIUM 8.8 mg/dL (8.5-10.1); CARBON DIOXIDE 35.7 mmol/L (21.0-32.0); CHLORIDE - SERUM 95 mmol/L (98-107); CREATININE - SERUM 0.9 mg/dL (0.6-1.3); POTASSIUM - SERUM 3.7 mmol/L (3.5-5.1); SODIUM 137 mmol/L (136-145); UREA NITROGEN 15 mg/dL (7-18); eGFR NON AFRICAN AMERICAN > 90 mL/min (90-120)
[2019-07-29 18:13] LABS: GLUCOSE 315 mg/dL (74-106)
[2019-07-29 18:25] LABS: ALBUMIN 3.2 g/dL (3.4-5.0); ALKALINE PHOSPHATASE 144 U/L (46-116); ALT (SGPT) 51 U/L (10-68); BILIRUBIN - TOTAL 1.11 mg/dL (0.2-1.3); MAGNESIUM - SERUM 1.6 mg/dL (1.8-2.4); PRO BNP 4892 pg/mL (0-125); PROTEIN - SERUM 7.1 g/dL (6.4-8.2)
[2019-07-29 18:40] LABS: KETONE - SERUM SMALL mg/dL (NEGATIVE)
[2019-07-29 19:00] VITALS: BP 181/104
[2019-07-29 21:00] VITALS: BP 181/101
[2019-07-29 22:55] VITALS: BP 185/97; BMI 23.2; BMI 37.6
[2019-07-29] MEDS ORDERED: CARAFATE1 G PO (23:24)
[2019-07-29] MEDS ORDERED: ZOLOFT50 MG PO (23:26)
[2019-07-30] VITALS: BP 185/97
[2019-07-30 01:55] LABS: UDS - AMPHET NEGATIVE QUAL (NEGATIVE); UDS - BARB NEGATIVE QUAL (NEGATIVE); UDS - BENZO NEGATIVE QUAL (NEGATIVE); UDS - COCAINE NEGATIVE QUAL (NEGATIVE); UDS - OPIATE NEGATIVE QUAL (NEGATIVE); UDS - PCP NEGATIVE QUAL (NEGATIVE); UDS - THC NEGATIVE QUAL (NEGATIVE)
--- NOTE | 2019-07-30 03:19 | NUR ---
ASSESSED AT THE BEGINNING OF THE SHIFT. PT IS LETHARGIC AND SLEEPY. HE IS ABLE TO ANSWER MOST QUESTIONS BUT KEEPS TRYING TO SLEEP. HE WAS GIVEN A SANDWICH TRAY AND HAS BEEN STEADY GOING TO THE BATHROOM TO VOID.ILL CONFER WITH HIS TOMORROW ABOUT HIS MEDS BECAUSE HE WAS SO TIRED WE ARE NOT SURE ITS TOTALY CORRECT.AT THIS TIME HE IS RESTING QUIET.
[2019-07-30 04:18] VITALS: BP 109/62
--- NOTE | 2019-07-30 04:37 | NUR ---
WHEN 4 AM VITAL SIGNS WERE TAKEN, PT WAS FOUND WITH O2 OFF AND SAT WAS IN THE LOW 50'S. WAKING HIM UP AND PUTTING O2 BACK ON HE STILL ONLY CAMAE BACK TO THE 60'S. RESP WAS CALLED AND AFTER ASSIST WITH REPOSITIONING AND GETTING PT MORE AWAKE HE CAME UP TO THE 80'S. AT THIS POINT RESP TECH PALCED HIM ON A HIGH FLOW AT 8 LITERS. HE IS NOW DOING BETTER. BECAUSE HE WAS HARD TO KEEP AWAKE AND THIRSTY WE DID A BLOOD SUGAR EARLY AND IT WAS 447. SLIDING SCALE WAS GIVEN ORDERED AND WE WILL RECHECK AT 0600.
[2019-07-30 07:48] VITALS: BP 172/105
--- NOTE | 2019-07-30 08:19 | NUR ---
ALERT AND ORIENTED X3. UP AMBULATING IN ROOM WITH STEADY GAIT. STATES HAS HAD CONFUSION AT HOME AND UNABLE TO RECOGNIZE HERSELF AND REFERING TO PARENTS THAT ARE IF THEY WERE ALIVE. STATES HAS HAD INCONINENT EPISODES AT HOME WELL. ENCOURAGED TO USE CALL LIGHT FOR ASSIST.
[2019-07-30 11:49] VITALS: BP 171/95
[2019-07-30 12:30] LABS: APTT 25.2 SECONDS (22.8-39.4); INR 1.12 (0.85-1.17); PROTIME 13.9 SECONDS (11.6-15.0)
[2019-07-30 12:31] LABS: D-DIMER-QUANTITATIVE 0.64 ug/mLFEU (0.20-0.54)
[2019-07-30 15:43] VITALS: BP 168/103
--- NOTE | 2019-07-30 17:34 | NUR ---
BLADDER SCAN OBTAINED WITH 23CC RESIDUAL NOTED.
[2019-07-30 19:36] VITALS: BP 154/86
--- NOTE | 2019-07-30 21:30 | NUR ---
A/O WITH NO SIGNS OF ACUTE DISTRESS. IV TO THE LT AC WITH NO REDNESS OR SWELLING. NC @4L AND BHAVIN ALARM ON. RECEIVED CALL FROM STATING THAT WHILE ON THE PHONE WITH PT SHE THOUGHT SHE HEARD THE PT SAY THAT HE WAS LAYING ON THE FLOOR. UPON QUESTIONING PT HE STATED THAT "SHE MISHEARD AND HE WAS STANDING IN THE MIDDLE OF THE FLOOR." NO WOUNDS NOTED AND VS ARE STABLE. DENIES NEEDS AT THIS TIME. CONTINUE PLAN OF CARE.
[2019-07-31 00:05] VITALS: BP 210/120
--- NOTE | 2019-07-31 00:30 | NUR ---
MANUAL BP READING 210/120. CALLED ISAIAH FRANKLIN. ORDERED ONE TIME DOSE OF HYDRALAZINE 10MG IV. ORDER VERIFIED. SONOGRAPHY TECHNICIAN NOTIFIED. WILL CONTINUE TO MONITOR.
[2019-07-31 03:57] VITALS: BP 186/103
[2019-07-31 05:16] VITALS: BP 170/95
[2019-07-31 07:17] LABS: CALCIUM 7.9 mg/dL (8.5-10.1); CHLORIDE - SERUM 97 mmol/L (98-107); MAGNESIUM - SERUM 1.2 mg/dL (1.8-2.4); SODIUM 140 mmol/L (136-145)
--- NOTE | 2019-07-31 07:19 | NUR ---
PT AWAKEA DN ORIENTED WITH DOPPLER FEMALE IN THE ROOM. NO COMPLAINTS OR CONCERNS ALL QUESTIONS ANSWERED TO THE BEST OF MY ABILITY. NO FAMILY PRESENT AT BEDSIDE. CL IN REACH, SRX2.
[2019-07-31 07:21] LABS: BASOPHILS 0.2 % (0-2); HEMATOCRIT 54.9 % (42.0-54.0); IMMATURE GRANULOCYTES 0.2 % (0-5); LYMPHOCYTES 18.6 % (15-50); MCH 27.1 pg (26.0-34.0); MCV 87.6 fL (80.0-100.0); MEAN PLATELET VOLUME 9.6 fL (7.4-10.4); MONOCYTES 8.8 % (2-11); NEUTROPHILS 71.2 % (40-80); PLATELET COUNT 124 10x3/uL (130-400); RBC 6.27 10x6/uL (4.20-6.10); RDW 16.2 % (11.5-14.5); WBC 4.8 10x3/uL (4.8-10.8)
[2019-07-31 07:27] LABS: CALC OSMOLALITY 279 mosm/kg (275-300); CREATININE - SERUM 0.6 mg/dL (0.6-1.3); GLUCOSE 131 mg/dL (74-106); UREA NITROGEN 10 mg/dL (7-18); eGFR NON AFRICAN AMERICAN > 90 mL/min (90-120)
[2019-07-31 07:28] LABS: CARBON DIOXIDE 40.4 mmol/L (21.0-32.0); POTASSIUM - SERUM 2.6 mmol/L (3.5-5.1)
--- NOTE | 2019-07-31 09:47 | NUR ---
ORTHOSTATIC B/P: LAYING (169/93) SITING (177/116) STANDING (171/103)
[2019-07-31 09:48] VITALS: BP 181/104
[2019-07-31 13:10] VITALS: Ht 177.8 cm; Wt 118.8 kg
--- NOTE | 2019-07-31 14:44 | NUR ---
HAVE NOT GIVEN SLOW MAG D/T BEING UNAVLIABLE. SPOKE WITH PHARMACY, THEY STATED THEY WOULD BRING SOME.
--- NOTE | 2019-07-31 18:16 | NUR ---
I have reviewed this patient and I concur with the Shift Assessment completed by the Licensed Practical Nurse today this shift.
[2019-07-31 19:34] VITALS: BP 170/102
--- NOTE | 2019-07-31 19:35 | NUR ---
PT SITTING UP IN BED WATCHING TV.CL IN REACH. DENIES NEEDS AT THIS TIME. BED IN LOW SIDE RAILS X2. A/O X4. PT IS COMPLAINING OF HEADACHE ULTRAM GIVEN AT THIS TIME. LUNGS CLEAR. BOWEL ACTIVE X4. WILL CONTINUE TO MONITOR.
--- NOTE | 2019-07-31 23:53 | NUR ---
POTASSIUM SERUM CAME BACK 3.3 TREATED PO 40 MEQ WILL RECHECK LABS IN AM
[2019-08-01 04:00] VITALS: BP 166/102
--- NOTE | 2019-08-01 05:20 | NUR ---
I have reviewed this patient and I concur with the Shift Assessment completed by the Licensed Practical Nurse today this shift.
[2019-08-01 06:19] LABS: CALC OSMOLALITY 276 mosm/kg (275-300); CALCIUM 8.9 mg/dL (8.5-10.1); CARBON DIOXIDE 35.3 mmol/L (21.0-32.0); CHLORIDE - SERUM 97 mmol/L (98-107); CREATININE - SERUM 0.7 mg/dL (0.6-1.3); GLUCOSE 157 mg/dL (74-106); SODIUM 137 mmol/L (136-145); UREA NITROGEN 12 mg/dL (7-18); eGFR NON AFRICAN AMERICAN > 90 mL/min (90-120)
[2019-08-01 06:20] LABS: MAGNESIUM - SERUM 1.6 mg/dL (1.8-2.4); POTASSIUM - SERUM 3.9 mmol/L (3.5-5.1)
[2019-08-01 06:33] LABS: BASOPHILS 0.2 % (0-2); EOSINOPHILS 1.1 % (0-7); HEMATOCRIT 60.1 % (42.0-54.0); HEMOGLOBIN 18.6 g/dL (13.5-17.5); IMMATURE GRANULOCYTES 0.2 % (0-5); LYMPHOCYTES 15.2 % (15-50); MCH 27.2 pg (26.0-34.0); MCHC 30.9 g/dL (31.0-37.0); MCV 87.9 fL (80.0-100.0); MEAN PLATELET VOLUME 9.5 fL (7.4-10.4); MONOCYTES 8.1 % (2-11); NEUTROPHILS 75.2 % (40-80); PLATELET COUNT 116 10x3/uL (130-400); RDW 16.5 % (11.5-14.5); WBC 5.4 10x3/uL (4.8-10.8)
[2019-08-01 06:44] LABS: RBC 6.84 10x6/uL (4.20-6.10)
--- NOTE | 2019-08-01 06:46 | NUR ---
CRITICAL RBC OF 6.84 RECIEVED. PAGE MACK LOWE APN,
--- NOTE | 2019-08-01 06:49 | NUR ---
CRITICAL RBC OF 6.84 RECIEVED. PAGED MACK CANTUN, NO NEW ORDERS AT THIS TIME. WCTM
--- NOTE | 2019-08-01 08:05 | NUR ---
PT RESTING IN BED WITH EYES OPEN CALL LIGHT IN REACH WILL MONITER
[2019-08-01 08:21] VITALS: BP 165/107
--- NOTE | 2019-08-01 15:10 | NUR ---
DR GONG IN WITH PT NO FURTHER QUESTIONS PT CALL LIGHT IN REACH NO PROBLEMS WILL MONITER
--- NOTE | 2019-08-01 15:30 | NUR ---
OT NOTE; PT COMPLETED BED MOB TASKS WITH SBA. PT COMPLETED ADL MOB WITH SBA/CGA. PT COMPLETED UE AROM AXS. PT COMPLETED HAND HYGIENE WITH SBA WHILE STANDING. PT SOB WITH EXERTION. THANK YOU, MIGUELITO CHRISTIANSON
--- NOTE | 2019-08-01 15:31 | MORECARE ---
CASE MANAGEMENT DISCHARGE SUMMARY PATIENT: CARON FLOOD UNIT: [id number] ADM DATE: 07/29/19 AGE: 54 : 63 SEX: M ROOM/BED: D.1211 AUTHOR: BALTADOC PHYSICIAN: REFERRING PHYSICIAN: ZACH DELGADO MD DATE OF SERVICE: 08/01/19 Discharge Plan Patient Name: CARON FLOOD Facility: [facility]:[place] : 1965 Planned Disposition: Home Anticipated Discharge Date: 08/03/19 Discharge Date: Expected LOS: 5 Initial Reviewer: [email or web address] Initial Review Date: 07/29/2019 Generated: 08/01/19 4:31 pm Comments DCP- Discharge Planning Updated by [email or web address]: Jeri Crespo on 08/01/19 2:[address] DC PLAN: Return home independently w/ . ANTICIPATED DC NEEDS: Denied known dc needs. CM met with patient to complete initial dc planning assessment. CM educated patient on the CM role and verbal consent given by patient to complete assessment. CM verified patient's address, phone number, and emergency contact phone numbers. Patient lives at home with his . He reports he is independent in his care at home. He reports his sister in law provides all transportation needs. At discharge patient plans to return home and feels this is a safe discharge. CM discussed availability of home health, rehab services, and medical equipment. Patient denied known discharge needs at this time. Transportation provider at discharge will be his sister in law. CM will continue to follow and will assist as needed with dc plans/needs. Jeri rCespo RN, [facility] DCPIA - Discharge Planning Initial Assessment Updated by [email or web address]: Jeri Crespo on 08/01/19 3:26 pm * Is the patient Alert and Oriented? Yes * How many steps to enter\exit or inside your home? None * PCP Dr. Almaraz * Pharmacy [facility] * Preadmission Environment Home with Family * ADLs Independent * Equipment Oxygen * Other Equipment O2 with portability - [employer] is DME provider * List name and contact numbers for known caregivers / representatives who currently or will assist patient after discharge: Garima Flood - [facility] - [phone] * Verbal permission to speak to the caregivers and representatives has been obtained from the patient. Yes * Please name any agencies selected above. [facility] * Additional services required to return to the preadmission environment? No * Can the patient safely return to the preadmission environment? Yes * Has this patient been hospitalized within the prior 30 days at any hospital? No Coverage Notice Reviewer: [email or web address] Radha Crespo Notice Issued Date-Time: 08/01/2019 11:19 Notice Type: IM Discharge Notice Notice Delivered To: Patient Relationship to Patient: Plant Technician Name: Delivery Method: HAND - Hand Delivered Sujatha Days: Prior Verbal Notification: Recipient Understood Notice: Recipient Signature: Med Rec Note Co-signed by Attending: Coverage Notice Comment: DC IMM delivered, explained, signed by the patient, and placed in his chart. Signed form also left with patient. Jeri Crespo RN , [facility] Patient Name: CARON FLOOD Page [phone] at 1531 All edits/amendments must be made on the electronic document DICTATION DATE: 08/01/19 1530 SELF SEALING FUEL TANK REPAIRER: MARIE 08/01/19 1530 RPT#: [id number] DC DATE: STATUS: ADM IN [facility] [address] [place] [address] END OF REPORT
--- NOTE | 2019-08-01 16:22 | NUR ---
OT NOTE: MORE ALERT TODAY WITH LESS CONFUSION; 02 WAS ON AND SATS WERE 91. AMBUALTED APPROX 120 FT WITH WALKER AND CGA; ONE EPISODE OF LOB. ABLE TO ADAN SOCKS AND GOWN WITH SET UP; BED MOB WITH SPV ALTAF CASAS, OTR/L
--- NOTE | 2019-08-01 19:16 | NUR ---
GREETED PATIENT AND INTRODUCED MYSELF HIS NURSE. PATIENT IS LAYING IN BED AT THIS TIME WATCHING TV. O2 AT 4 L IN USE VIA NC. RESPIRATIONS EVEN. NO S/S OF DISTRESS. STATES HE HAS A SLIGHT HEADACHE AT THIS TIME. STATES THAT PAIN LEVEL IS 7/10. CALL LIGHT IN REACH.
[2019-08-01 19:30] VITALS: BP 141/98
--- NOTE | 2019-08-01 21:41 | NUR ---
DC PERIPHERAL IV IN RIGHT AC. PATIENT TOLERATED PROCEDURE. TIP INTACT
--- NOTE | 2019-08-01 21:51 | NUR ---
NEW 22 GAUGE IN LEFT WRIST, SUCCESSFUL FIRST ATTEMP.
[2019-08-02] VITALS (8 sets, daily range): BP systolic 129–184; BP diastolic 82–115
--- NOTE | 2019-08-02 01:08 | NUR ---
PT. RESTING QUIETLY WITH EYES CLOSED LAYING IN SUPINE POSITION. HOB AT 30 DEGREES. O2 AT 4L VIA NC. RESPIRATIONS EVEN. NO S/S OF DISTRESS. CALL LIGHT IN REACH.
--- NOTE | 2019-08-02 03:27 | NUR ---
PT. RESTING QUIETLY WITH EYES CLOSED. RESPIRATIONS EVEN. NO S/S OF DISTRESS. O2 AT 4L VIA NC IN USE. SR UP X 2. BED IN LOWEST POSITION. CALL LIGHT IN REACH.
[2019-08-02 06:02] LABS: BASOPHILS 0.2 % (0-2); EOSINOPHILS 0.9 % (0-7); HEMATOCRIT 59.7 % (42.0-54.0); HEMOGLOBIN 18.5 g/dL (13.5-17.5); IMMATURE GRANULOCYTES 0.2 % (0-5); LYMPHOCYTES 18.7 % (15-50); MCH 27.2 pg (26.0-34.0); MCV 87.8 fL (80.0-100.0); MEAN PLATELET VOLUME 9.6 fL (7.4-10.4); MONOCYTES 9.2 % (2-11); NEUTROPHILS 70.8 % (40-80); PLATELET COUNT 122 10x3/uL (130-400); RDW 16.6 % (11.5-14.5); WBC 5.3 10x3/uL (4.8-10.8)
[2019-08-02 06:17] LABS: CALC OSMOLALITY 282 mosm/kg (275-300); CALCIUM 8.6 mg/dL (8.5-10.1); CARBON DIOXIDE 34.7 mmol/L (21.0-32.0); CHLORIDE - SERUM 97 mmol/L (98-107); CREATININE - SERUM 0.8 mg/dL (0.6-1.3); GLUCOSE 224 mg/dL (74-106); MAGNESIUM - SERUM 1.6 mg/dL (1.8-2.4); POTASSIUM - SERUM 4.1 mmol/L (3.5-5.1); SODIUM 137 mmol/L (136-145); UREA NITROGEN 17 mg/dL (7-18); eGFR NON AFRICAN AMERICAN > 90 mL/min (90-120)
--- NOTE | 2019-08-02 06:28 | NUR ---
PT. AWAKE AND LAYING IN BED WATCHING TV. O2 AT 4L IN USE VIA NC. DENIES ANY NEEDS AT THIS TIME. CALL LIGHT IN REACH.
--- NOTE | 2019-08-02 07:51 | NUR ---
PATIENT ALERT/ORIENT. SITTING UP IN BED TO EAT BREAKFAST. CALL LIGHT WITHIN REACH. VOICES NO NEEDS AT THIS TIME. WILL CONTINUE WITH PLAN OF CARE.
--- NOTE | 2019-08-02 19:27 | NUR ---
PT LYING ON LEFT SIDE WATCHING TV. CL IN REACH. DENIES NEEDS AT THIS TIME. BED IN LOW SIDE RAILS X2. RESP EVEN AND UNLABORED. O2 ON 4L VIA HF. A/O X4. BOWEL ACTIVE X4. WILL CONTINUE TO MONITOR.
[2019-08-03] VITALS: BP 132/81
--- NOTE | 2019-08-03 03:27 | NUR ---
I have reviewed this patient and I concur with the Shift Assessment completed by the Licensed Practical Nurse today this shift.
[2019-08-03 04:30] VITALS: BP 156/98
[2019-08-03 06:19] LABS: CALC OSMOLALITY 275 mosm/kg (275-300); CALCIUM 9.3 mg/dL (8.5-10.1); CARBON DIOXIDE 33.5 mmol/L (21.0-32.0); CHLORIDE - SERUM 97 mmol/L (98-107); CREATININE - SERUM 0.8 mg/dL (0.6-1.3); MAGNESIUM - SERUM 1.5 mg/dL (1.8-2.4); POTASSIUM - SERUM 3.8 mmol/L (3.5-5.1); SODIUM 135 mmol/L (136-145); UREA NITROGEN 21 mg/dL (7-18); eGFR NON AFRICAN AMERICAN > 90 mL/min (90-120)
[2019-08-03 06:20] LABS: GLUCOSE 152 mg/dL (74-106)
[2019-08-03 07:12] LABS: HEMATOCRIT 58.9 % (42.0-54.0); HEMOGLOBIN 18.1 g/dL (13.5-17.5); LYMPHOCYTES 24.1 % (15-50); MCH 26.3 pg (26.0-34.0); MCHC 30.7 g/dL (31.0-37.0); MEAN PLATELET VOLUME 9.8 fL (7.4-10.4); PLATELET COUNT 111 10x3/uL (130-400); RDW 16.5 % (11.5-14.5); WBC 4.7 10x3/uL (4.8-10.8)
[2019-08-03 07:20] LABS: MCV 85.7 fL (80.0-100.0); RBC 6.87 10x6/uL (4.20-6.10)
--- NOTE | 2019-08-03 07:26 | NUR ---
REPORT RECIEVED. PT SITTING SEMI FOWLERS IN BED. RR EVEN AND UNLABOED ON 4L NC HF. HE HAS A L WRIST PIV THAT IS SL. BED LOCKED AND IN LOWEST POSITON, CALL LIGHT WITHIN REACH. WILL CTM
--- NOTE | 2019-08-03 09:29 | NUR ---
SMOKING CESSTION QUITLINE SHEET GIVEN TO NURSE JESSICA TO GIVE TO PATIENT TO FILL OUT.
[2019-08-03 09:37] VITALS: BP 128/75
--- NOTE | 2019-08-03 11:49 | NUR ---
DC PAPERWORK GONE OVER AND SIGNED WITH PT. TELEMETRY REMOVED. PIV REMOVED, CATH TIP FULLY INTACT. ALL VALUBLES REMOVED FROM ROOM. PT TAKIN TO FRONT ENTRANCE VIA WHEELCHAIR.
--- NOTE | 2019-08-04 08:39 | MORECARE ---
CASE MANAGEMENT DISCHARGE SUMMARY PATIENT: CARON FLOOD UNIT: [id number] ADM DATE: 07/29/19 AGE: 54 : 63 SEX: M ROOM/BED: D.1211 AUTHOR: BALTADOC PHYSICIAN: REFERRING PHYSICIAN: ZACH DELGADO MD DATE OF SERVICE: 08/04/19 Discharge Plan Patient Name: CARON FLOOD Facility: [facility]:[place] : 1965 Planned Disposition: Home Anticipated Discharge Date: 08/03/19 Discharge Date: 08/03/2019 Expected LOS: 5 Initial Reviewer: [email or web address] Initial Review Date: 07/29/2019 Generated: 08/04/19 9:39 am Comments DCP- Discharge Planning Updated by [email or web address]: Jeri Crespo on 08/01/19 2:[address] DC PLAN: Return home independently w/ . ANTICIPATED DC NEEDS: Denied known dc needs. CM met with patient to complete initial dc planning assessment. CM educated patient on the CM role and verbal consent given by patient to complete assessment. CM verified patient's address, phone number, and emergency contact phone numbers. Patient lives at home with his . He reports he is independent in his care at home. He reports his sister in law provides all transportation needs. At discharge patient plans to return home and feels this is a safe discharge. CM discussed availability of home health, rehab services, and medical equipment. Patient denied known discharge needs at this time. Transportation provider at discharge will be his sister in law. CM will continue to follow and will assist as needed with dc plans/needs. Jeri Crespo RN, [facility] DCPIA - Discharge Planning Initial Assessment Updated by [id number]: Jeri Crespo on 08/01/19 3:26 pm * Is the patient Alert and Oriented? Yes * How many steps to enter\exit or inside your home? None * PCP Dr. Almaraz * Pharmacy [facility] * Preadmission Environment Home with Family * ADLs Independent * Equipment Oxygen * Other Equipment O2 with portability - [employer] is DME provider * List name and contact numbers for known caregivers / representatives who currently or will assist patient after discharge: Garima Flood - spouse - [phone] * Verbal permission to speak to the caregivers and representatives has been obtained from the patient. Yes * Please name any agencies selected above. [facility] * Additional services required to return to the preadmission environment? No * Can the patient safely return to the preadmission environment? Yes * Has this patient been hospitalized within the prior 30 days at any hospital? No Coverage Notice Reviewer: [id number] Radha Crespo Notice Issued Date-Time: 08/01/2019 11:19 Notice Type: IM Discharge Notice Notice Delivered To: Patient Relationship to Patient: Acquisition Manager Name: Delivery Method: HAND - Hand Delivered Sujatha Days: Prior Verbal Notification: Recipient Understood Notice: Recipient Signature: Med Rec Note Co-signed by Attending: Coverage Notice Comment: DC IMM delivered, explained, signed by the patient, and placed in his chart. Signed form also left with patient. Jeri Crespo RN , [facility] Last DP export: 08/01/19 2:31 p Patient Name: CARON FLOOD Page [phone] at 0839 All edits/amendments must be made on the electronic document DICTATION DATE: 08/04/1939 HYDROELECTRIC SYSTEMS TECHNICIAN: MARIE 08/04/19 0839 RPT#: [id number] DC DATE:08/03/19 STATUS: DIS IN [facility] [address] [place] [address] END OF REPORT
== END 2019-08-03 11:51 | disposition home or self-care (01) | DRG 291 ==
LOC: D.ER 17:29 → D.M3 20:59
PROVIDERS: Family Medicine; ADMIT Family Medicine; ATTEND Family Medicine
DX: I11.0 Hypertensive heart disease with heart failure (principal); J96.21 Acute and chronic respiratory failure with hypoxia; F17.213 Nicotine dependence, cigarettes, with withdrawal; I50.33 Acute on chronic diastolic (congestive) heart failure; R53.1 Weakness; R26.89 Other abnormalities of gait and mobility; R32 Unspecified urinary incontinence; E87.6 Hypokalemia; E83.42 Hypomagnesemia; D75.1 Secondary polycythemia; J44.9 Chronic obstructive pulmonary disease, unspecified; G47.33 Obstructive sleep apnea (adult) (pediatric); K21.9 Gastro-esophageal reflux disease without esophagitis; F32.9 Major depressive disorder, single episode, unspecified; E11.42 Type 2 diabetes mellitus with diabetic polyneuropathy

== ENCOUNTER 2020-04-01 16:05 | Observation (INO) | payer MEDICARE, MEDICAID ==
[~2020-04-01] VITALS: Ht 177.8 cm; Wt 99.3 kg
[~2020-04-01 16:05] MED LIST changes: +CARAFATE1 G PO; +INDERAL 40 MG T40 MG PO; +K-TAB10 MEQ PO; +PROTONIX20 MG PO; +ZOLOFT50 MG PO
[2020-04-01 16:57] VITALS: BP 150/85
--- NOTE | 2020-04-01 17:00 | NUR ---
URINE SENT TO LAB WITH BULK LOADER.
[2020-04-01 17:18] LABS: BILIRUBIN NEGATIVE (NEGATIVE); GLUCOSE 1000 mg/dL (NEGATIVE); KETONE NEGATIVE (NEGATIVE); NITRITE NEGATIVE (NEGATIVE); UROBILINOGEN NORMAL (NORMAL)
[2020-04-01 17:18] LABS: BASOPHILS 0.2 % (0-2); EOSINOPHILS 0.7 % (0-7); HEMATOCRIT 56.8 % (42.0-54.0); HEMOGLOBIN 18.1 g/dL (13.5-17.5); IMMATURE GRANULOCYTES 0.2 % (0-5); LYMPHOCYTES 17.3 % (15-50); MCH 28.4 pg (26.0-34.0); MCHC 31.9 g/dL (31.0-37.0); MEAN PLATELET VOLUME 9.9 fL (7.4-10.4); MONOCYTES 4.8 % (2-11); NEUTROPHILS 76.8 % (40-80); RBC 6.38 10x6/uL (4.20-6.10); RDW 19.1 % (11.5-14.5); WBC 5.6 10x3/uL (4.8-10.8)
[2020-04-01 17:21] LABS: INR 0.99 (0.85-1.17); PROTIME 13.1 SECONDS (11.6-15.0)
[2020-04-01 17:22] LABS: APTT 29.9 SECONDS (22.8-39.4)
[2020-04-01 17:23] LABS: PLATELET COUNT 100 10x3/uL (130-400)
[2020-04-01 18:54] LABS: ALBUMIN 3.2 g/dL (3.4-5.0); ALKALINE PHOSPHATASE 130 U/L (30-120); ALT (SGPT) 18 U/L (10-68); BILIRUBIN - TOTAL 0.93 mg/dL (0.2-1.3); CALCIUM 8.8 mg/dL (8.5-10.1); CHLORIDE - SERUM 93 mmol/L (98-107); CKMB 0.6 U/L (0.0-3.6); CREATINE KINASE 30 UL (21-232); CREATININE - SERUM 0.9 mg/dL (0.6-1.3); POTASSIUM - SERUM 3.6 mmol/L (3.5-5.1); PROTEIN - SERUM 6.3 g/dL (6.4-8.2); SODIUM 131 mmol/L (136-145); TROPONIN-I < 0.017 ng/mL (0.000-0.060); UREA NITROGEN 7 mg/dL (7-18); eGFR NON AFRICAN AMERICAN > 90 mL/min (90-120)
[2020-04-01 18:57] LABS: CALC OSMOLALITY 283 mosm/kg (275-300)
[2020-04-01 18:58] LABS: GLUCOSE 511 mg/dL (74-106)
--- NOTE | 2020-04-01 19:40 | NUR ---
FSBS 303.
[2020-04-01 20:30] VITALS: BP 139/63
--- NOTE | 2020-04-01 21:40 | NUR ---
RECEIVED PT FROM ER VIA W/C. ALERT AND ORIENTED X4. RESP NONLABORED. REPORTS SOB. NONPROD COUGH. STATES HE HAD DIARRHEA YESTERDAY. DENIES DIFF SWALLOWING. SLIGHT WEAKNESS NOTED TO LUE MARKET RESEARCH ASSOCIATE. AMBULATORY BUT STILL A FALL RISK. PT REFUSES BED ALARM AND WANTS TO SIGN WAIVER. SPEECH IS CLEAR. REVIEWED MEDS WITH PT AND STATES HE CANT REMEMBER TO TAKE THEM AND HAS BEEN NONCOMPLIANT WITH THEM FOR ATLEAST A WEEK. SALINE LOCK NTOED TO RT AC. SR ELEVATED X2. CL IN REACH.
--- NOTE | 2020-04-01 23:51 | NUR ---
NOTIFIED DR HUANG OF CONSULT AND INFORMED HIM OF PRESENTING SYMPTOMS AND CURRENT CONDITION. NEW ORDER NOTED FOR MRI BRAIN WITH AND WITHOUT CONTRAST.
[2020-04-02 00:09] VITALS: BP 153/88; BMI 31.4
[2020-04-02 05:17] LABS: BASOPHILS 0.2 % (0-2); EOSINOPHILS 1.1 % (0-7); HEMATOCRIT 54.6 % (42.0-54.0); HEMOGLOBIN 17.2 g/dL (13.5-17.5); LYMPHOCYTES 32.3 % (15-50); MCH 27.8 pg (26.0-34.0); MCHC 31.5 g/dL (31.0-37.0); MCV 88.3 fL (80.0-100.0); MEAN PLATELET VOLUME 9.8 fL (7.4-10.4); MONOCYTES 7.2 % (2-11); NEUTROPHILS 59.2 % (40-80); PLATELET COUNT 112 10x3/uL (130-400); RBC 6.18 10x6/uL (4.20-6.10); RDW 18.4 % (11.5-14.5); WBC 4.6 10x3/uL (4.8-10.8)
[2020-04-02 05:29] LABS: ALBUMIN 2.7 g/dL (3.4-5.0); ALKALINE PHOSPHATASE 91 U/L (30-120); ALT (SGPT) 14 U/L (10-68); BILIRUBIN - TOTAL 1.14 mg/dL (0.2-1.3); CALCIUM 8.5 mg/dL (8.5-10.1); CARBON DIOXIDE 34.4 mmol/L (21.0-32.0); CHLORIDE - SERUM 103 mmol/L (98-107); CKMB 0.8 U/L (0.0-3.6); CREATINE KINASE 25 UL (21-232); PROTEIN - SERUM 5.9 g/dL (6.4-8.2); SODIUM 141 mmol/L (136-145); UREA NITROGEN 6 mg/dL (7-18)
[2020-04-02 05:36] LABS: CALC OSMOLALITY 281 mosm/kg (275-300); CREATININE - SERUM 0.6 mg/dL (0.6-1.3); GLUCOSE 160 mg/dL (74-106)
[2020-04-02 05:37] LABS: TROPONIN-I < 0.017 ng/mL (0.000-0.060); eGFR NON AFRICAN AMERICAN > 90 mL/min (90-120)
[2020-04-02 09:07] VITALS: BP 162/93
[2020-04-02 12:42] VITALS: BP 163/96
[2020-04-02 13:10] VITALS: Ht 177.8 cm; Wt 99.3 kg
[2020-04-02 16:12] VITALS: BP 172/98
--- NOTE | 2020-04-02 19:20 | NUR ---
SITTING UP IN BED WATCHING TV. ALERT AND ORIENTED X4. SLIGHT LT SIDED WEAKNESS. STATES HE HAS HAD SOME EPISODES OF TINGLING IN HIS LT ARM TODAY. AMBULATORY. RESP NONLABORED. O2 @ 4LNC. SALINE LOCK NOTED TO RT AC. SKIN ON BLE IS DRY SCALY. DENIES PAIN. TELEMETRY SHOWS SR WITH RATE OF 77. CL IN REACH.
[2020-04-02 20:00] VITALS: BP 140/80
[2020-04-03] VITALS: BP 143/91
--- NOTE | 2020-04-03 00:38 | NUR ---
LYING IN BED WATCHING TV. JUST GOT OFF OF THE PHONE WITH HIS . NO DISTRESS. CL IN REACH.
[2020-04-03 04:00] VITALS: BP 173/98
--- NOTE | 2020-04-03 04:38 | NUR ---
LYING IN BED WATCHING TV. NO DISTRESS. CL IN REACH.
[2020-04-03 06:31] LABS: HEMATOCRIT 56.3 % (42.0-54.0); HEMOGLOBIN 17.8 g/dL (13.5-17.5); MCH 27.8 pg (26.0-34.0); MCHC 31.6 g/dL (31.0-37.0); PLATELET COUNT 107 10x3/uL (130-400); RDW 18.9 % (11.5-14.5); WBC 4.9 10x3/uL (4.8-10.8)
[2020-04-03 06:33] LABS: ALBUMIN 2.8 g/dL (3.4-5.0); ALKALINE PHOSPHATASE 92 U/L (30-120); ALT (SGPT) 15 U/L (10-68); BILIRUBIN - TOTAL 1.17 mg/dL (0.2-1.3); CALCIUM 9.2 mg/dL (8.5-10.1); CARBON DIOXIDE 33.8 mmol/L (21.0-32.0); CHLORIDE - SERUM 102 mmol/L (98-107); CHOL - HDL RATIO 3.1 ratio (2.3-4.9); CHOLESTEROL, TOTAL 176 mg/dL (0-200); CREATININE - SERUM 0.7 mg/dL (0.6-1.3); HDL CHOLESTEROL 56 mg/dL (32-96); LDL CHOLESTEROL 88 mg/dL (0-100); LDL-HDL RATIO 1.6 ratio (1.5-3.5); PROTEIN - SERUM 6.3 g/dL (6.4-8.2); SODIUM 138 mmol/L (136-145); TRIGLYCERIDE 161 mg/dL (30-200); eGFR NON AFRICAN AMERICAN > 90 mL/min (90-120)
[2020-04-03 06:34] LABS: GLUCOSE 209 mg/dL (74-106); UREA NITROGEN 9 mg/dL (7-18)
[2020-04-03 06:35] LABS: CALC OSMOLALITY 280 mosm/kg (275-300); POTASSIUM - SERUM 3.2 mmol/L (3.5-5.1)
[2020-04-03 07:52] LABS: BASOPHILS 1 % (0-2); EOSINOPHILS 1 % (0-7); LYMPHOCYTES 19 % (15-50); MONOCYTES 4 % (2-11); NEUTROPHILS 74 % (40-80); PLATELET ESTIMATE DECREASED
[2020-04-03 07:53] LABS: ROULEAUX OCC
[2020-04-03 12:53] VITALS: BP 148/98
--- NOTE | 2020-04-03 13:22 | MORECARE ---
CASE MANAGEMENT DISCHARGE SUMMARY PATIENT: CARON FLOOD RAY UNIT: [id number] ADM DATE: 04/01/20 AGE: 55 : 63 SEX: M ROOM/BED: D.2210 AUTHOR: JASON GIFFORD PHYSICIAN: REFERRING PHYSICIAN: MENDOZA EARL MD DATE OF SERVICE: 04/03/20 Discharge Plan Patient Name: CARON FLOOD Facility: [facility]:[place] : 1965 Planned Disposition: Home with Home Health Anticipated Discharge Date: Discharge Date: Expected LOS: Initial Reviewer: [email or web address] Initial Review Date: 04/01/2020 Generated: 04/03/20 2:22 pm DCP- Discharge Planning Updated by LORIE: Ingris De Oliveira on 04/02/20 1:[address] ROGERS SERVED AND EXPLAINED DCPIA - Discharge Planning Initial Assessment Updated by LORIE: Ingris De Oliveira on 04/03/20 1:22 pm * Is the patient Alert and Oriented? Yes * How many steps to enter\exit or inside your home? RAMP * PCP [place] * Pharmacy [facility] * Preadmission Environment Home with Family * ADLs Independent * Equipment Glucometer Nebulizer Other Oxygen * Other Equipment CONCENTRATOR * List name and contact numbers for known caregivers / representatives who currently or will assist patient after discharge: RAVEN ( ) [phone] * Verbal permission to speak to the caregivers and representatives has been obtained from the patient. N/A * Community resources currently utilized None * Additional services required to return to the preadmission environment? Yes * Can the patient safely return to the preadmission environment? Yes * Has this patient been hospitalized within the prior 30 days at any hospital? No Coverage Notice Reviewer: [email or web address] - Ingris De Oliveira Notice Issued Date-Time: 04/02/2020 14:45 Notice Type: Medicare Outpatient Observation Notice Notice Delivered To: Patient Relationship to Patient: Hyperbaric Tech Name: Delivery Method: HAND - Hand Delivered Sujatha Days: Prior Verbal Notification: Recipient Understood Notice: Yes Recipient Signature: Yes Med Rec Note Co-signed by Attending: Coverage Notice Comment: ROGERS SERVED AND EXPLAINED Patient Name: CARON FLOOD Page [phone] at 1322 All edits/amendments must be made on the electronic document DICTATION DATE: 04/03/20 132 DRAFTER ELECTRICAL: MARIE 04/03/20 1322 RPT#: [id number] DC DATE: STATUS: ADM IN [facility] [address] [place] [address] END OF REPORT
--- NOTE | 2020-04-03 13:34 | MORECARE ---
CASE MANAGEMENT DISCHARGE SUMMARY PATIENT: CARON FLOOD UNIT: [id number] ADM DATE: 04/01/20 AGE: 55 : 63 SEX: M ROOM/BED: D.2210 AUTHOR: BALTA,DOC PHYSICIAN: REFERRING PHYSICIAN: MENDOZA EARL MD DATE OF SERVICE: 04/03/20 Discharge Plan Patient Name: CARON FLOOD Facility: [facility]:[place] : 1965 Planned Disposition: Home with Home Health Anticipated Discharge Date: Discharge Date: Expected LOS: Initial Reviewer: [email or web address] Initial Review Date: 04/01/2020 Generated: 04/03/20 2:33 pm Comments DCP- Discharge Planning Updated by [email or web address]: Ingris De Oliveira on 04/03/20 12:[address] Patient Name: CARON FLOOD Admission Status: ER Accout number: [id number] Admission Date: 04-01-2020 : 1965 Admission Diagnosis: Attending: EDWARD Current LOS: 2 Anticipated DC Date: Planned Disposition: Home with Home Health Primary Insurance: [employer] ADV Discharge Planning Comments: CM met with patient to complete initial dc planning assessment. CM educated patient on the CM role and verbal consent given by patient to complete assessment. Patient lives at home with his where he was independent with his care. At discharge patient plans to return home and feels this is a safe discharge. CM discussed availability of home health, rehab services, and medical equipment. Patient states that he has O2, concentrator, nebulizer and portable at home. He wears 4 L at home. He also has a glucometer at home. Home health will be set up [facility] with [facility], I spoke with Bartolo and will send referral over to them. His sister in law will be his straight truck driver home. Patient denied known discharge needs at this time. CM will continue to follow and will assist as needed with dc plans/needs. Box Chipper: Ingris De Oliveira DCP- Discharge Planning Updated by [email or web address]: Ingris De Oliveira on 04/02/20 1:[address] ROGERS SERVED AND EXPLAINED DCPIA - Discharge Planning Initial Assessment Updated by [email or web address]: Ingris De Oliveira on 04/03/20 1:22 pm * Is the patient Alert and Oriented? Yes * How many steps to enter\exit or inside your home? RAMP * PCP [facility] * Pharmacy [facility] * Preadmission Environment Home with Family * ADLs Independent * Equipment Glucometer Nebulizer Other Oxygen * Other Equipment CONCENTRATOR * List name and contact numbers for known caregivers / representatives who currently or will assist patient after discharge: RAVEN ( ) [phone] * Verbal permission to speak to the caregivers and representatives has been obtained from the patient. N/A * Community resources currently utilized None * Additional services required to return to the preadmission environment? Yes * Can the patient safely return to the preadmission environment? Yes * Has this patient been hospitalized within the prior 30 days at any hospital? No Coverage Notice Reviewer: [id number] Radha De Oliveira Notice Issued Date-Time: 04/02/2020 14:45 Notice Type: Medicare Outpatient Observation Notice Notice Delivered To: Patient Relationship to Patient: Pre Fabricator Name: Delivery Method: HAND - Hand Delivered Sujatha Days: Prior Verbal Notification: Recipient Understood Notice: Yes Recipient Signature: Yes Med Rec Note Co-signed by Attending: Coverage Notice Comment: ROGERS SERVED AND EXPLAINED Reviewer: [email or web address] Radha De Oliveira Notice Issued Date-Time: 04/03/2020 13:10 Notice Type: Patient Choice Letter Notice Delivered To: Patient Relationship to Patient: Pre Fabricator Name: Delivery Method: HAND - Hand Delivered Sujatha Days: Prior Verbal Notification: Recipient Understood Notice: Yes Recipient Signature: Yes Med Rec Note Co-signed by Attending: Coverage Notice Comment: eloisa schafer hh Last DP export: 04/03/20 12:22 pm Patient Name: CARON FLOOD Page [id number] at 1334 All edits/amendments must be made on the electronic document DICTATION DATE: 04/03/20 1333 BENEFIT DIRECTOR: MARIE 04/03/20 1333 RPT#: [id number] DC DATE: STATUS: ADM IN [facility] [address] [place] [address] END OF REPORT
[2020-04-03] MEDS ORDERED: PERFOROMIS20 MCG/21 INH (13:53)
[2020-04-03] MEDS ORDERED: NICODERM CQ1 EAC3 TRANSDERM (13:53)
[2020-04-03] MEDS ORDERED: PLAVIX75 MG PO (13:54)
[2020-04-03] MEDS ORDERED: LIPITOR20 MG PO (14:54)
--- NOTE | 2020-04-03 14:58 | MORECARE ---
CASE MANAGEMENT DISCHARGE SUMMARY PATIENT: CARON FLOOD UNIT: [id number] ADM DATE: 04/01/20 AGE: 55 : 63 SEX: M ROOM/BED: D.2210 AUTHOR: BALTA,DOC PHYSICIAN: REFERRING PHYSICIAN: MENDOZA EARL MD DATE OF SERVICE: 04/03/20 Discharge Plan Patient Name: CARON FLOOD Facility: [facility]:[place] : 1965 Planned Disposition: Home with Home Health Anticipated Discharge Date: Discharge Date: Expected LOS: Initial Reviewer: [email or web address] Initial Review Date: 04/01/2020 Generated: 04/03/20 3:58 pm Comments DCP- Discharge Planning Updated by [email or web address]: Ingris De Oliveira on 04/03/20 1:[address] PATIENT IS BEING [facility]HCARGED WITH [facility], I HAVE FAXED ALL CLINICALS TO THEM DCP- Discharge Planning Updated by [email or web address]: Ingris De Oliveira on 04/03/20 12:[address] Patient Name: CARON FLOOD Admission Status: ER Accout number: [id number] Admission Date: 04-01-2020 : 1965 Admission Diagnosis: Attending: EDWARD Current LOS: 2 Anticipated DC Date: Planned Disposition: Home with Home Health Primary Insurance: [employer]IC[employer] ADV Discharge Planning Comments: CM met with patient to complete initial dc planning assessment. CM educated patient on the CM role and verbal consent given by patient to complete assessment. Patient lives at home with his where he was independent with his care. At discharge patient plans to return home and feels this is a safe discharge. CM discussed availability of home health, rehab services, and medical equipment. Patient states that he has O2, concentrator, nebulizer and portable at home. He wears 4 L at home. He also has a glucometer at home. Home health will be set up [facility] with [facility], I spoke with Bartolo and will send referral over to them. His sister in law will be his route cdl driver home. Patient denied known discharge needs at this time. CM will continue to follow and will assist as needed with dc plans/needs. Self Storage Manager: Ingris De Oliveira DCP- Discharge Planning Updated by [email or web address]: Ingris De Oliveira on 04/02/20 1:[address] SUE SERVED AND EXPLAINED DCPIA - Discharge Planning Initial Assessment Updated by [id number]: Ingris De Oliveira on 04/03/20 1:22 pm * Is the patient Alert and Oriented? Yes * How many steps to enter\exit or inside your home? RAMP * PCP [facility] * [facility] * Preadmission Environment Home with Family * ADLs Independent * Equipment Glucometer Nebulizer Other Oxygen * Other Equipment CONCENTRATOR * List name and contact numbers for known caregivers / representatives who currently or will assist patient after discharge: RAVEN ( ) [phone] * Verbal permission to speak to the caregivers and representatives has been obtained from the patient. N/A * Community resources currently utilized None * Additional services required to return to the preadmission environment? Yes * Can the patient safely return to the preadmission environment? Yes * Has this patient been hospitalized within the prior 30 days at any hospital? No External Providers External Provider: [facility] Next Contact Date: Service Request Date: Service Type: Resolution: Reviewer: Comments: Coverage Notice Reviewer: [id number] Radha De Oliveira Notice Issued Date-Time: 04/02/2020 14:45 Notice Type: Medicare Outpatient Observation Notice Notice Delivered To: Patient Relationship to Patient: Monogram And Letter Paster Name: Delivery Method: HAND - Hand Delivered Sujatha Days: Prior Verbal Notification: Recipient Understood Notice: Yes Recipient Signature: Yes Med Rec Note Co-signed by Attending: Coverage Notice Comment: SUE SERVED AND EXPLAINED Reviewer: [email or web address] Radha De Oliveira Notice Issued Date-Time: 04/03/2020 13:10 Notice Type: Patient Choice Letter Notice Delivered To: Patient Relationship to Patient: Monogram And Letter Paster Name: Delivery Method: HAND - Hand Delivered Sujatha Days: Prior Verbal Notification: Recipient Understood Notice: Yes Recipient Signature: Yes Med Rec Note Co-signed by Attending: Coverage Notice Comment: eloisa chao Last DP export: 04/03/20 12:34 pm Patient Name: CARON FLOOD Page [id number] at 2324 All edits/amendments must be made on the electronic document DICTATION DATE: 04/03/204 BOAT HAND: MARIE 04/03/20 8667 RPT#: [id number] DC DATE: STATUS: ADM IN [facility] [address] [place] [address] END OF REPORT
--- NOTE | 2020-04-03 16:44 | NUR ---
IV DISCONTINUED AND VERBALIZED UNDERSTANDING OF DISCHARGE INSRUCTIONS. STABLE AT TIME OF DEPARTURE.
--- NOTE | 2020-04-04 09:33 | MORECARE ---
CASE MANAGEMENT DISCHARGE SUMMARY PATIENT: CARON FLOOD UNIT: [id number] ADM DATE: 04/01/20 AGE: 55 : 63 SEX: M ROOM/BED: D.2210 AUTHOR: BALTA,DOC PHYSICIAN: REFERRING PHYSICIAN: MENDOZA EARL MD DATE OF SERVICE: 04/04/20 Discharge Plan Patient Name: CARON FLOOD Facility: [facility]:[place] : 1965 Planned Disposition: Home with Home Health Anticipated Discharge Date: Discharge Date: 04/03/2020 Expected LOS: Initial Reviewer: [email or web address] Initial Review Date: 04/01/2020 Generated: 04/04/20 10:33 am Comments DCP- Discharge Planning Updated by [email or web address]: Ingris De Oliveira on 04/03/20 1:[address] PATIENT IS BEING [facility]ED WITH [facility], I HAVE FAXED ALL CLINICALS TO THEM DCP- Discharge Planning Updated by [email or web address]: Ingris De Oliveira on 04/03/20 12:[address] Patient Name: CARON FLOOD Admission Status: ER Accout number: [id number] Admission Date: 04-01-2020 : 1965 Admission Diagnosis: Attending: EDWARD Current LOS: 2 Anticipated DC Date: Planned Disposition: Home with Home Health Primary Insurance: [employer]IC[employer] ADV Discharge Planning Comments: CM met with patient to complete initial dc planning assessment. CM educated patient on the CM role and verbal consent given by patient to complete assessment. Patient lives at home with his where he was independent with his care. At discharge patient plans to return home and feels this is a safe discharge. CM discussed availability of home health, rehab services, and medical equipment. Patient states that he has O2, concentrator, nebulizer and portable at home. He wears 4 L at home. He also has a glucometer at home. Home health will be set up [facility] with [facility], I spoke with Bartolo and will send referral over to them. His sister in law will be his services delivery driver home. Patient denied known discharge needs at this time. CM will continue to follow and will assist as needed with dc plans/needs. Mining Professionals: Ingris De Oliveira DCP- Discharge Planning Updated by [email or web address]: Ingris De Oliveira on 04/02/20 1:[address] SUE SERVED AND EXPLAINED DCPIA - Discharge Planning Initial Assessment Updated by [email or web address]: Ingris De Oliveira on 04/03/20 1:22 pm * Is the patient Alert and Oriented? Yes * How many steps to enter\exit or inside your home? RAMP * PCP [facility] * [facility] * Preadmission Environment Home with Family * ADLs Independent * Equipment Glucometer Nebulizer Other Oxygen * Other Equipment CONCENTRATOR * List name and contact numbers for known caregivers / representatives who currently or will assist patient after discharge: RAVEN ( ) [phone] * Verbal permission to speak to the caregivers and representatives has been obtained from the patient. N/A * Community resources currently utilized None * Additional services required to return to the preadmission environment? Yes * Can the patient safely return to the preadmission environment? Yes * Has this patient been hospitalized within the prior 30 days at any hospital? No Coverage Notice Reviewer: [id number] Radha De Oliveira Notice Issued Date-Time: 04/02/2020 14:45 Notice Type: Medicare Outpatient Observation Notice Notice Delivered To: Patient Relationship to Patient: Tube Closing Machine Operator Name: Delivery Method: HAND - Hand Delivered Sujatha Days: Prior Verbal Notification: Recipient Understood Notice: Yes Recipient Signature: Yes Med Rec Note Co-signed by Attending: Coverage Notice Comment: SUE SERVED AND EXPLAINED Reviewer: [id number] De Oliveira Notice Issued Date-Time: 04/03/2020 13:10 Notice Type: Patient Choice Letter Notice Delivered To: Patient Relationship to Patient: Tube Closing Machine Operator Name: Delivery Method: HAND - Hand Delivered Sujatha Days: Prior Verbal Notification: Recipient Understood Notice: Yes Recipient Signature: Yes Med Rec Note Co-signed by Attending: Coverage Notice Comment: eloisa schafer hh Last DP export: 04/03/20 1:58 pm Patient Name: CARON FLOOD Page [phone] at 0933 All edits/amendments must be made on the electronic document DICTATION DATE: 04/04/20932 REAL ESTATE PROFESSIONAL: MARIE 04/04/20932 RPT#: [id number] DC DATE:04/03/20 STATUS: DIS IN [facility] [address] [place] [address] END OF REPORT
== END 2020-04-03 16:46 | disposition home or self-care (01) ==
LOC: D.ER 16:05 → D.MS 20:10 → OBSVTIME 20:10 → D.MS 20:10
PROVIDERS: Family Medicine; ADMIT Family Medicine; ATTEND Family Medicine
DX: G45.9 Transient cerebral ischemic attack, unspecified (principal); E11.65 Type 2 diabetes mellitus with hyperglycemia; F17.203 Nicotine dependence unspecified, with withdrawal; E87.1 Hypo-osmolality and hyponatremia; I11.0 Hypertensive heart disease with heart failure; I50.30 Unspecified diastolic (congestive) heart failure; J44.9 Chronic obstructive pulmonary disease, unspecified; E11.40 Type 2 diabetes mellitus with diabetic neuropathy, unspecified; J96.91 Respiratory failure, unspecified with hypoxia; F32.9 Major depressive disorder, single episode, unspecified; M19.90 Unspecified osteoarthritis, unspecified site; J45.909 Unspecified asthma, uncomplicated; Z72.89 Other problems related to lifestyle; G89.29 Other chronic pain; G47.33 Obstructive sleep apnea (adult) (pediatric); K21.9 Gastro-esophageal reflux disease without esophagitis

== ENCOUNTER → 2020-04-21 15:41 | Outpatient (CLI) | payer MEDICARE, MEDICAID ==
[2020-04-02 13:10] VITALS: BMI 31.4
[~2020-04-21 15:41] MED LIST changes: +LIPITOR20 MG PO; +NICODERM CQ1 EAC3 TRANSDERM; +PERFOROMIS20 MCG/21 INH; +PLAVIX75 MG PO
== END | disposition home or self-care (01) ==
LOC: D.LAB 15:41
PROVIDERS: ATTEND Internal Medicine Pulmonary Disease
DX: J44.9 Chronic obstructive pulmonary disease, unspecified (principal)

== ENCOUNTER → 2020-04-24 09:01 | Outpatient (CLI) | payer MEDICARE, MEDICAID ==
[2020-04-02 13:10] VITALS: BMI 31.4
== END | disposition home or self-care (01) ==
LOC: D.RT 09:01
PROVIDERS: ATTEND Internal Medicine Pulmonary Disease
DX: J44.9 Chronic obstructive pulmonary disease, unspecified (principal)